=== PATIENT | female | born 1940 | race Caucasian/White ===

== ENCOUNTER 2018-10-20 10:23 | Inpatient (IN) ==
--- NOTE | 2018-10-20 11:24 | Emergency Department Note ---
History of Present Illness General Chief complaint: Hip Pain Stated complaint: fall/ L hip & leg pain Time Seen by Provider: 10/20/18 10:31 Source: patient Mode of arrival: EMS History of Present Illness Maximum Pain Intensity: 5 This 78-year-old white female presents by BLS ambulance, for evaluate of left- sided low back and pelvic pain after falling at home this morning. Patient has a history of neuropathy. She fell asleep in her recliner and woke up around 1 AM. She attempted to walk to the bedroom but her left leg gave out. She fell backwards landing on her buttock and back. She attempted to bear weight on the left leg but states it was too painful and could not. She sat on the floor until 8AM when she called her daughter. She states she did not want to bother anyone in the early hours. No prior history of significant hip or low back pain. She denies any chest pain, shortness of breath, abdominal pain. She denies any neck pain. She believes she did not strike her head. She does not take any blood thinners. Home Medications Home Medications Medication Instructions Recorded Confirmed Type allopurinol [Zyloprim] 100 mg PO BID 10/20/18 10/20/18 History atorvastatin [Lipitor] 40 mg PO QPM 10/20/18 10/20/18 History brimonidine 1 drp OPHTHALMIC (EYE) DAILY 10/20/18 10/20/18 History escitalopram oxalate 10 mg PO QPM 10/20/18 10/20/18 History gabapentin [Neurontin] 100 mg PO TID 10/20/18 10/20/18 History glimepiride 1 mg PO BID 10/20/18 10/20/18 History insulin detemir U-100 [Levemir 30 - 35 units SUBCUT QPM 10/20/18 10/20/18 History U-100 Insulin] levothyroxine 100 mcg PO QPM 10/20/18 10/20/18 History metoprolol succinate 100 mg PO QPM 10/20/18 10/20/18 History prednisone 5 mg PO QPM 10/20/18 10/20/18 History sitagliptin [Januvia] 50 mg PO QPM 10/20/18 10/20/18 History Allergies Allergy/AdvReac Type Severity Reaction Status Date / Time meperidine Allergy Hives Unverified 10/20/18 11:10 Past Med/Surg History Medical History PMR (polymyalgia rheumatica) (Chronic) Hypothyroidism (Chronic) GERD (gastroesophageal reflux disease) (Chronic) Peripheral neuropathy (Chronic) HTN (hypertension) (Chronic) Dyslipidemia (Chronic) Diabetes mellitus, type II (Chronic) Neuropathy Surgical History Hx of tonsillectomy (Resolved) History of cholecystectomy (Resolved) History of appendectomy (Resolved) History of cataract extraction with lens replacement (Resolved) Family History Daughter Diabetes borderline Other No pertinent family history Social History marital status: Current Living Situation: Alone current occupational status: retired Other Information That Helps Us Care for You: No Feels Safe at Home: Yes Smoking Status: Never smoker Do You Dip or Chew Tobacco: No Second Hand Exposure: No Tobacco Cessation Education Requested by Patient: No Hx Alcohol Use: No Hx Substance Use: No Beliefs That Will Affect Care: None Communication Ability: Effective Visual Impairment: No Limitations Hearing Ability: Normal Review of Systems A total of 10 systems reviewed and were otherwise negative Physical Exam Vital Signs Vital Signs - 24 hr 10/20/18 10:39 10/20/18 13:42 10/20/18 15:40 Temperature 36.8 C Temperature Source Oral Sepsis Recent Fever Within 48 Hours No Sepsis Action Taken by Nursing No Action Required Pulse Rate 85 Pulse Rate [Right Finger] 83 88 Pulse Rhythm Regular Pulse Strength Normal Respiratory Rate 20 20 20 Respiratory Effort / Characteristics Non-Labored Respiratory Depth Normal Respiratory Pattern Regular Blood Pressure 169/115 H Blood Pressure [Right Arm] 159/87 H 145/87 H Blood Pressure Mean 133 Blood Pressure Mean [Right Arm] 111 106 Blood Pressure Position Lying Pulse Oximetry 98 94 94 Oxygen Delivery Method Room Air Room Air Room Air 10/20/18 16:45 Temperature Temperature Source Sepsis Recent Fever Within 48 Hours Sepsis Action Taken by Nursing Pulse Rate 85 Pulse Rate [Right Finger] Pulse Rhythm Pulse Strength Respiratory Rate 18 Respiratory Effort / Characteristics Respiratory Depth Respiratory Pattern Blood Pressure 139/88 Blood Pressure [Right Arm] Blood Pressure Mean Blood Pressure Mean [Right Arm] Blood Pressure Position Pulse Oximetry 92 Oxygen Delivery Method Room Air General: Well-developed, well-nourished, elderly white female, in obvious discomfort. No acute distress. Laying on a bed. Alert and oriented. Skin: Warm and dry with good turgor. No rashes or lesions. No erythema. No ecchymosis present on her back or buttocks. Mild ecchymosis present on the lateral aspect of her left ankle. The patient is not diaphoretic. No abrasions. HEENT: Normocephalic atraumatic. Eyes PERRLA, EOMI. No conjunctiva or scleral injection. Ears TMs intact bilaterally with good light reflexes. No erythema or bulging. No hemotympanum. Canals are patent. Nares patent bilaterally without turbinate enlargement. No significant drainage. No epistaxis. Oropharynx without erythema or exudate. Uvula midline, oral mucosa moist. No lesions present. Heart: Heart RRR. No MGR. Peripheral pulses are 2+. Lungs: Lungs are clear to auscultation. No crackles rhonchi or wheezing. Good air movement. The patient is able to take a deep breath. Abdomen: Abdomen was inspected, auscultated, and palpated. Bowel sounds present x 4. Soft, nontender to palpation. No hepato-splenomegaly. No masses noted. No rebound, negative Cui sign. No pain over McBurney's point. No CVA tenderness. Musculoskeletal: No pain with palpation over the cervical spine or thoracic spine. Mild discomfort with palpation over the lumbar spine. Severe pain with palpation over the left SI joint and gluteus. No pain with palpation over her anterior flexion crease or greater trochanter. Intact motor function of the upper extremities. Intact motor function to the lower extremities as well. She denies any groin pain with logrolling of the hip or passive hip flexion on either side. Left hip flexion does cause gluteal and SI joint discomfort. She has no leg length discrepancy and there is no rotational deformity. Neurologic: Gross sensation is intact across the upper and lower extremities by soft touch. Peripheral pulses are 2+. Course Administered Medications Sodium Chloride (Nss 1000ml) 1,000 mls @ 200 mls/hr IV .Q5H ROBERT Stop: 11/19/18 13:44 Last Infusion: 10/20/18 17:47 Dose: 0 mls/hr Admin: 10/20/18 14:42 Dose: 200 mls/hr Oxycodone HCl (Roxicodone Immediate Rel) 5 mg PO Q4 PRN PRN Reason: Pain Stop: 11/03/18 16:59 Last Admin: 10/20/18 17:53 Dose: 5 mg Discontinued Medications Acetaminophen (Tylenol) 1,000 mg PO NOW STA Stop: 10/20/18 12:38 Last Admin: 10/20/18 13:03 Dose: 1,000 mg Ketorolac Tromethamine (Toradol) 15 mg IV ONE ONE Stop: 10/20/18 14:06 Last Admin: 10/20/18 14:42 Dose: 15 mg Medical Decision Making Differential Diagnosis Hip fracture, fall, pubic rami fracture, iliac crest fracture, spinal fracture, rhabdomyolysis. Medical Records Attestation: I reviewed the patient's medical records. Home Medications Current Medication List: was personally reviewed by me Laboratory Data Attestation: I reviewed the patient's lab results. CBC, PRP, and total CK were obtained. WBCs are mildly elevated at 16.7. BUN and creatinine are mildly elevated at 25 and 1.42. Total CK is normal. Result diagrams: 10/20/18 13:10 10/20/18 13:10 Lab Results 10/20/18 10/20/18 10/20/18 Range/Units 13:10 13:10 13:10 WBC 16.74 H (4.8-10.8) K/uL RBC 3.89 L (4.2-5.4) M/uL Hgb 13.1 (12.0-16.0) g/dL Hct 38.7 (37-47) % MCV 99.5 (80-100) fL MCH 33.7 (25-34) pg MCHC 33.9 (32-36) g/dL RDW Std Deviation 49.9 H (36.4-46.3) fL RDW Coeff of Mansi 13.9 (11.5-14.5) % Plt Count 226 (130-400) K/uL MPV 9.6 (7.4-10.4) fL Immature Gran % (Auto) 0.5 % Neut % (Auto) 79.3 % Lymph % (Auto) 12.4 % Daniels % (Auto) 7.1 % Eos % (Auto) 0.5 % Baso % (Auto) 0.2 % Immature Gran # (Auto) 0.08 H (0.00-0.02) K/uL Neut # (Auto) 13.27 H (1.4-6.5) K/uL Lymph # (Auto) 2.08 (1.2-3.4) K/uL Daniels # (Auto) 1.19 H (0.11-0.59) K/uL Eos # (Auto) 0.08 (0-0.5) K/uL Baso # (Auto) 0.04 (0-0.2) K/uL Sodium 138 (136-145) mmol/L Potassium 3.7 (3.5-5.1) mmol/L Chloride 101 (98-107) mmol/L Carbon Dioxide 28 (21-32) mmol/L Anion Gap 9.0 (3-11) BUN 25 H (7-18) mg/dl Creatinine 1.42 H (0.6-1.2) mg/dl Est Cr Clr Drug Dosing 32.7 ml/min Est GFR ( Amer) 40.3 Est GFR (Non-Af Amer) 34.8 BUN/Creatinine Ratio 17.3 (10-20) Glucose 229 H (70-99) mg/dl Calcium 9.2 (8.5-10.1) mg/dl Total Creatine Kinase 163 (26-192) U/L Imaging Data Attestation: I personally reviewed and interpreted this imaging study as follows : Radiologist's Impression: Radiographic imaging of her pelvis and sacrum were obtained today. They were read by radiology and reviewed by me. No evidence for fracture. CT scan imaging of the head, lumbar spine, and pelvis were also obtained. These were reviewed by me and read by radiology. No intracranial abnormality. Acute L4 compression fracture. No acute abnormality is noted on CT scan imaging of the pelvis. Degenerative changes are noted in the spine and pelvis. Blood Pressure Blood Pressure Findings: Normal blood pressure MDM Narrative Patient was evaluated in A3. IV was established. Labs were obtained. Radiographic imaging of the pelvis, head, and lumbar spine were also obtained. Patient had significant discomfort in the left SI joint and left buttock. Pain was reasonable when she was lying down but had significant difficulty sitting up. She was unable to ambulate. Because of this, placement at a rehab facility was discussed. No beds are available today. I do think she would benefit from physical therapy and occupational therapy. Her daughters are in agreement. She does live by herself and self-care would be very difficult. I also am concerned about pain control given her acute L4 compression fracture. Patient is agreeable to admission. [facility] hospitalist service was contacted and did come to the ED to evaluate the patient. Please see that dictation for final management. She remained stable while in the ED. She did receive Toradol 15 mg IV and Tylenol thousand milligrams p.o. while in the ED. Patient was seen in conjunction with Dr. Whalen, who also evaluated the patient and concurred with today's diagnosis and treatment plan. Impression & Plan Fall at home, Compression fracture of lumbar vertebra, Unable to ambulate Admission by hospitalist service with eventual placement at rehab hospital Discharge Plan Visit Data *Final* Discharge Date/Time: 10/20/18 16:45 Chief Complaint: Hip Pain Stated Complaint: fall/ L hip & leg pain ED Provider: Reyes Whalen ED Midlevel Provider: Hua Moralez Discharge Problem: Fall at home, Compression fracture of lumbar vertebra, Unable to ambulate Patient Disposition: Admitted As Inpatient Discharge Instructions Interventions: ED Discharge Assessment Last Done: 10/20/18 16:45
--- NOTE | 2018-10-20 11:41 | XRay Report ---
SINGLE VIEW PELVIS; 3 VIEWS SACRUM AND COCCYX CLINICAL HISTORY: Fall with pelvic and sacral pain. FINDINGS: An AP view of the pelvis with 3 views of the sacrum and coccyx are obtained. No prior studi es are available for comparison at the time of dictation. The skeletal structures are osteopenic. The re is no radiographic evidence of acute fracture involving the hips or bony pelvis. There is no radio graphic evidence of sacrococcygeal fracture. Moderate arthritic change and joint space narrowing is s een in the hips. Sclerotic degenerative change is noted in the sacroiliac joints. Small enthesophytes arise from the anterior superior iliac spine. Lumbosacral spondylosis is partially imaged. The overl rogelio soft tissues are normal in appearance. Advanced atherosclerotic calcification is noted in the fe moral arteries. No bowel obstruction is seen. IMPRESSION: 1. Osteopenia with no radiographic evidence of acute fracture involving the hips or bony pelvis. 2. There is no radiographic evidence of sacrococcygeal fracture. Electronically signed by: Missael Lara M.D. 10/20/2018 11:40 AM
--- NOTE | 2018-10-20 12:20 | CT Scan Report ---
CT SCAN OF THE BRAIN WITHOUT IV CONTRAST CLINICAL HISTORY: Fall. COMPARISON STUDY: No priors. TECHNIQUE: Unenhanced axial CT scan of the brain is performed from the vertex to the skull base. A do se lowering technique was utilized adhering to the principles of ALARA. CT DOSE: 614.27 mGy.cm FINDINGS: Brain parenchyma: There are age-related involutional changes noting mild subcortical and periventric ular microangiopathic change. There is no hemorrhage, mass effect, or evidence of acute territorial i schemia by CT criteria. Street-white matter differentiation is preserved. No extra-axial fluid collecti on is seen. Ventricles, sulci, cisterns: Prominent secondary to involutional change. Intracranial vasculature: There is atherosclerotic calcification of the cavernous carotid and vertebr al arteries. Calvarium: The skeletal structures are osteopenic. No depressed calvarial fracture is identified. Sinuses and mastoids: There is mucosal thickening within the posterior right ethmoid sinuses. The rem aining paranasal sinuses are clear. The mastoid air cells are well pneumatized. Orbits: The bony orbits are grossly intact. There are bilateral ocular lens implants. IMPRESSION: There is no hemorrhage, mass effect, or evidence of acute territorial ischemia by CT noah nix. Electronically signed by: Missael Lara M.D. 10/20/2018 12:19 PM
[2018-10-20] MEDS ORDERED: ACETAMINOPHEN 500 MG TAB PO STA (12:37)
[2018-10-20 13:19] LABS: Basophils # (auto) 0.04 K/uL (0-0.2); Basophils % (auto) 0.2 %; Eosinophils # (auto) 0.08 K/uL (0-0.5); Eosinophils % (auto) 0.5 %; Hematocrit (blood only) 38.7 % (37-47); Hemoglobin 13.1 g/dL (12.0-16.0); Immature Granulocytes # (auto) 0.08 K/uL (0.00-0.02); Immature Granulocytes % (auto) 0.5 %; Lymphocytes # (auto) 2.08 K/uL (1.2-3.4); Lymphocytes % (auto) 12.4 %; Mean Corpuscular Hgb Conc 33.9 g/dL (32-36); Mean Corpuscular Volume 99.5 fL (80-100); Mean Platelet Volume 9.6 fL (7.4-10.4); Monocytes # (auto) 1.19 K/uL (0.11-0.59); Monocytes % (auto) 7.1 %; Neutrophils # (auto) 13.27 K/uL (1.4-6.5); Neutrophils % (auto) 79.3 %; Platelet Count 226 K/uL (130-400); RDW Coefficient of Variation 13.9 % (11.5-14.5); RDW Standard Deviation 49.9 fL (36.4-46.3); Red Blood Count 3.89 M/uL (4.2-5.4); White Blood Count 16.74 K/uL (4.8-10.8)
--- NOTE | 2018-10-20 13:39 | CT Scan Report ---
CT SCAN OF THE LUMBAR SPINE WITHOUT IV CONTRAST CLINICAL HISTORY: Fall. Low back pain. COMPARISON STUDY: No priors. TECHNIQUE: CT scan of the lumbar spine is performed from the lower thoracic spine to the sacrum. Imag es are reviewed in the axial, sagittal, and coronal planes. IV contrast was not administered for this examination. A dose lowering technique was utilized adhering to the principles of ALARA. FINDINGS: The skeletal structures are osteopenic. There is a moderate acute compression fracture of L 4. No significantly retropulsed fragments are identified. A mild superior endplate compression deform ity of L3 is age indeterminant. Vertebral body height is otherwise maintained throughout the lumbar s pine. There is minimal retrolisthesis at L2-L3 and minimal anterolisthesis at L4-L5. Anterior osteoph ytes are seen throughout. The transverse and spinous processes are intact. There is no evidence of sp ondylolysis. No lytic or blastic lesion is seen. Mild facet arthropathy is seen in the lower lumbar r egion. There is advanced disc space narrowing with a large posterior disc osteophyte complex at L5-S1 . Small posterior disc osteophyte complexes are seen at the remaining lumbar levels. Moderate disc sp consuelo narrowing is seen at L2-L3. There is no evidence of large disc herniation by CT. The visualized s acrum and bony pelvis appear intact. Sclerotic change is noted in the sacroiliac joints. There is adv anced atherosclerotic calcification of the abdominal aorta. The paraspinous soft tissues are normal i n appearance noting fatty atrophy of the paraspinous musculature. The psoas musculature is normal in appearance. Nonobstructing left renal calculi measure up to 6 mm. IMPRESSION: 1. There is a moderate acute compression fracture of L4. No significantly retropulsed fragments are i dentified. 2. There is a mild and age indeterminant superior endplate compression deformity of L3. 3. No additional acute fracture is identified involving the lumbar spine. 4. Nonobstructing left renal calculi. Electronically signed by: Missael Lara M.D. 10/20/2018 1:52 PM
[2018-10-20 13:41] LABS: BUN Creatinine Ratio 17.3 (10-20); Calcium 9.2 mg/dl (8.5-10.1); Creatinine Clr Calc Pharmacy 32.7 ml/min; Est GFR (African American) 40.3; Est GFR (Non-African American) 34.8; Potassium 3.7 mmol/L (3.5-5.1)
--- NOTE | 2018-10-20 13:48 | CT Scan Report ---
CT SCAN OF THE PELVIS WITHOUT IV CONTRAST CLINICAL HISTORY: Fall. Pelvic pain. COMPARISON STUDY: Sacral and pelvic radiographs dated 10/20/2018. TECHNIQUE: CT scan of the bony pelvis is performed from the pelvic inlet to the proximal femora. Imag es are reviewed in the axial, sagittal, and coronal planes. IV contrast was not administered for this examination as per the referring clinician. A dose lowering technique was utilized adhering to the p rinciples of ALARA. CT DOSE: 1409.72 mGy.cm FINDINGS: The skeletal structures are osteopenic. There is a moderate acute compression fracture of L 4. No significantly retropulsed fragments are identified. No fracture is identified involving the hip s or bony pelvis. Arthritic change is noted in the hips. There is no evidence of joint effusion. Dege nerative sclerosis is seen in the sacroiliac joints. No lytic or blastic lesion is identified. There is atherosclerotic calcification of the distal abdominal aorta and iliac arteries. The bladder, uteru s, and adnexa are normal as visualized. The visualized loops of small bowel and colon are normal in c aliber. There are scattered colonic diverticula noted in the sigmoid. No free fluid is identified in the pelvis. There is generalized symmetric atrophy of the regional musculature. No intramuscular kamala moi is seen. The overlying soft tissues are normal in appearance. IMPRESSION: 1. There is no evidence of fracture involving the hips or bony pelvis. 2. There is a moderate acute compression fracture of L4. No significantly retropulsed fragments are i dentified. 3. Osteopenia and degenerative change as above. Electronically signed by: Missael Lara M.D. 10/20/2018 1:46 PM
[2018-10-20] MEDS ORDERED: KETOROLAC TROMETHAMINE 15 MG/ML VIAL IV ONE (14:05)
[2018-10-20] MEDS: SODIUM CHLORIDE 0.9% 1000ML 1,000 ML IV SCH ×2 (14:42→22:45)
--- NOTE | 2018-10-20 15:09 | Emergency Department Note ---
ED Visit Note I have personally evaluated this patient examined her and reviewed the pertinent labs and data. I have discussed the case with Hua Moralez, the physician bacteriology research assistant and agree with the plan. Please refer to the PA note. This patient comes in after suffering a mechanical fall. On my exam, she has a lot of pain in her left buttocks and into the back. We did a CAT scan of her head is negative. X-rays of the pelvis were unremarkable she seems most tender along the left posterior pelvis. In light of her ongoing symptoms, we did order CAT scans and blood work. CAT scans do show a lower lumbar fracture. I do think she needs to be admitted for pain management and further evaluation. She has received IV Toradol in the ER as well. .
--- NOTE | 2018-10-20 15:51 | History & Physical Report ---
Date of Service October 20, 2018 Assessment & Plan (1) Lumbar compression fracture: (2) Fall: (3) Ambulatory dysfunction: Pt with reported fall when getting out of chair in middle of the night. Unable to get off floor for 6 hours. Denies dizziness, LOC, CP, SOB. C/O low back pain and hip pain In ER patient afebrile, P: 85, R: 20, BP 169/118 down to 159/87, 98% on room air. WBC: 16. Patient on chronic prednisone. BUN: 25, Cr: 1.4 (baseline 1.4- 1.6). Was given Tylenol, Toradol, NSS. Reported that patient was unable to ambulate in ER. An attempt was made to get patient to [facility] rehab however no beds were available today, reported possible opening tomorrow. -Lumbar CT: There is a moderate acute compression fracture of L4. No significantly retropulsed fragments are identified. There is a mild and age indeterminant superior endplate compression deformity of L3. No additional acute fracture is identified involving the lumbar spine. -Pelvis CT: There is no evidence of fracture involving the hips or bony pelvis. -CT Head: no acute changes -CPK: 163 -Pending UA -gentle IVF -oxycodone prn pain -CBC, BMP, CPK in a.m. -PT/OT eval -spine ortho consult -appreciate recommendations about brace (4) HTN (hypertension): Initially elevated in ER at 169/115 down to 159/87. Probable secondary to pain. -continue metoprolol (5) Diabetes mellitus, type II: HbA1c: 7.9 on 06/2018 -Continue home Levemir -NovoLog sliding scale per protocol -Hold Januvia (6) PMR (polymyalgia rheumatica): -Continue chronic prednisone (7) Hypothyroidism: TSH: 0.57 on 06/2018 -Continue levothyroxine (8) CKD (chronic kidney disease), stage III: Cr: 1.4. Baseline: 1.4-1.6 -monitor renal functions (9) Dyslipidemia: -Continue statin (10) Depression: -Continue Lexapro (11) Peripheral neuropathy: -Patient reports does not take gabapentin as did not feel it was helpful DVT Prophylaxis -Heparin SQ Full Code as per discussion with pt Follows with Judith eNlson PA-C for routine care Pt was seen with Dr Mendez. See addendum History of Present Illness Chief Complaint: Fall, back and hip pain Primary Care Provider: Judith Nleson Pt is 78 y/o F with PMH insulin dependent DM II, peripheral neuropathy, HTN, dyslipidemia, depression, GERD, hypothyroidism, PMR presented to ER with c/o fall. Pt reports chronic numbness bilateral feet. States fell asleep in chair last night and woke up, stood up to walk and thinks leg buckled and fell to floor and was unable to get up for approx 6 hours. C/O low back pain and right hip pain. Reports intense pain with attempt to ambulate and unable to ambulate. Denies any increased BLE paresthesias. Doesn't think hit her head. Remembers incident and denies LOC. Denies fever/chills, diaphoresis, N/V/D/C, PARHAM, dizziness, syncope, vision changes, neck pain, CP, SOB, orthopnea, palpitations , cough, sore throat, choking, otalgia, rhinorrhea, abdominal pain, extremity edema, rashes, urinary symptoms, loss control bowel/bladder, saddle paresthesias. Allergies Allergy/AdvReac Type Severity Reaction Status Date / Time meperidine Allergy Hives Unverified 10/20/18 11:10 Home Medications Home Medications Medication Instructions Recorded Confirmed Type allopurinol [Zyloprim] 100 mg PO BID 10/20/18 10/20/18 History atorvastatin [Lipitor] 40 mg PO QPM 10/20/18 10/20/18 History brimonidine 1 drp OPHTHALMIC (EYE) DAILY 10/20/18 10/20/18 History escitalopram oxalate 10 mg PO QPM 10/20/18 10/20/18 History gabapentin [Neurontin] 100 mg PO TID 10/20/18 10/20/18 History glimepiride 1 mg PO BID 10/20/18 10/20/18 History insulin detemir U-100 [Levemir 30 - 35 units SUBCUT QPM 10/20/18 10/20/18 History U-100 Insulin] levothyroxine 100 mcg PO QPM 10/20/18 10/20/18 History metoprolol succinate 100 mg PO QPM 10/20/18 10/20/18 History prednisone 5 mg PO QPM 10/20/18 10/20/18 History sitagliptin [Januvia] 50 mg PO QPM 10/20/18 10/20/18 History Past Med/Surg History Medical History Depression (Chronic) CKD (chronic kidney disease), stage III (Chronic) PMR (polymyalgia rheumatica) (Chronic) Hypothyroidism (Chronic) GERD (gastroesophageal reflux disease) (Chronic) Peripheral neuropathy (Chronic) HTN (hypertension) (Chronic) Dyslipidemia (Chronic) Diabetes mellitus, type II (Chronic) Neuropathy Surgical History Hx of tonsillectomy (Resolved) History of cholecystectomy (Resolved) History of appendectomy (Resolved) History of cataract extraction with lens replacement (Resolved) Family History Daughter Diabetes borderline Other No pertinent family history Social History marital status: Current Living Situation: Alone current occupational status: retired Other Information That Helps Us Care for You: No Feels Safe at Home: Yes Smoking Status: Never smoker Do You Dip or Chew Tobacco: No Second Hand Exposure: No Tobacco Cessation Education Requested by Patient: No Hx Alcohol Use: No Hx Substance Use: No Beliefs That Will Affect Care: None Communication Ability: Effective Visual Impairment: No Limitations Hearing Ability: Normal Review of Systems All systems reviewed & are unremarkable except as noted in HPI & below Physical Exam 2 Vital Signs (Past 24 Hours): Last Vital Signs Temp 36.8 C 10/20/18 10:39 Pulse 83 10/20/18 13:42 Resp 20 10/20/18 13:42 BP 159/87 H 10/20/18 13:42 Pulse Ox 94 10/20/18 13:42 Physical Exam: General: no acute distress, WDWN Head: normocephalic, atraumatic Eyes: PERRL, EOM's intact, conjunctiva non-injected, anicteric ENT: normal inspection external ears, nose, mucous membranes moist Neck: supple, trachea midline, non-tender Lungs: clear, no respiratory distress CV: RRR, no murmur, no pretibial edema Abd: normal BS, soft, non-tender Back: limited ROM, +tenderness to palpation lower back Ext: no cyanosis, no calf tenderness, +tenderness to right hip/pelvis, legs non- tender to palpation, ROM R and L leg with minimal hip flexion causes back pain, flexion and extension knees and ankles intact bilaterally. sensation to light touch intact, brisk capillary refill, distal pulses palpable. Neuro: A&O x 3, no focal deficits noted, normal affect Skin: warm, dry Results & Data Laboratory Results Short CBC 10/20/18 Range/Units 13:10 WBC 16.74 H (4.8-10.8) K/uL Hgb 13.1 (12.0-16.0) g/dL Hct 38.7 (37-47) % Plt Count 226 (130-400) K/uL BMP 10/20/18 13:10 Sodium 138 Potassium 3.7 Chloride 101 Carbon Dioxide 28 BUN 25 H Creatinine 1.42 H Glucose 229 H Calcium 9.[address] HEAD: IMPRESSION: There is no hemorrhage, mass effect, or evidence of acute territorial ischemia by CT criteria. PELVIS XRAY: IMPRESSION: 1. Osteopenia with no radiographic evidence of acute fracture involving the hips or bony pelvis. 2. There is no radiographic evidence of sacrococcygeal fracture. SACRUM/COCCYX XRAY: IMPRESSION: 1. Osteopenia with no radiographic evidence of acute fracture involving the hips or bony pelvis. 2. There is no radiographic evidence of sacrococcygeal fracture. LUMBAR SPINE CT: IMPRESSION: 1. There is a moderate acute compression fracture of L4. No significantly retropulsed fragments are identified. 2. There is a mild and age indeterminant superior endplate compression deformity of L3. 3. No additional acute fracture is identified involving the lumbar spine. 4. Nonobstructing left renal calculi. PELVIS CT: IMPRESSION: 1. There is no evidence of fracture involving the hips or bony pelvis. 2. There is a moderate acute compression fracture of L4. No significantly retropulsed fragments are identified. 3. Osteopenia and degenerative change as above. Supervising Physician Co-Signing Physician Notes I saw this patient with the physician marketing assistant, I participated in the history, physical, review of systems, and physical exam. I reviewed the medications with the patient and the physician marketing assistant and helped reconcile the medications. I helped take a detailed family and social history as well. I formulated the assessment and plan personally with the physician marketing assistant and went over it with the patient.
[2018-10-20] MEDS ORDERED: SODIUM CHLORIDE 0.9% 1000ML 1,000 ML IV SCH (17:00)
[2018-10-20] MEDS ORDERED: ACETAMINOPHEN 325 MG TAB PO PRN (17:00)
[2018-10-20] MEDS ORDERED: ONDANSETRON INJ 2 MG/ML 2 ML VIAL IV PRN (17:00)
[2018-10-20] MEDS: OXYCODONE HCL IR 5 MG TAB (IMMEDIATE RELEASE) PO PRN ×2 (17:53→22:36)
[2018-10-20] MEDS ORDERED: GLUCOSE 10 TABS/TUBE PO PRN (19:19)
[2018-10-20] MEDS ORDERED: GLUCAGON FOR INJ 1 MG VIAL SQ PRN (19:19)
[2018-10-20] MEDS ORDERED: CARBOHYDRATES FOR HYPOGLYCEMIA PO PRN (19:19)
[2018-10-20] MEDS ORDERED: GLUCOSE 40% GEL 15 GM TUBE PO PRN (19:19)
[2018-10-20] MEDS ORDERED: DEXTROSE 50% 50 ML SYRINGE IV PRN (19:19)
[2018-10-20] MEDS: HEPARIN SOD 5,000 UNIT/0.5 ML VIAL SQ SCH (21:44)
[2018-10-20] MEDS: ATORVASTATIN 40 MG TAB PO SCH (21:44)
[2018-10-20] MEDS: METOPROLOL SUCC 50MG EXT REL TAB PO SCH (21:44)
[2018-10-20] MEDS: ALLOPURINOL 100 MG TAB PO SCH (21:45)
[2018-10-20] MEDS: ESCITALOPRAM OXALATE 10 MG TAB PO SCH (21:45)
[2018-10-20] MEDS: predniSONE 5 MG TAB PO SCH (21:45)
[2018-10-20] MEDS: LEVOTHYROXINE SODIUM 100 MCG TABLET PO SCH (21:45)
[2018-10-20] MEDS: INSULIN DETEMIR FLEXPEN/FLEX TOUCH 100 UNITS/ML 3ML SC SCH (21:46)
[2018-10-20] MEDS: INSULIN ASPART 100 UNITS/ML 3 ML PEN SC SCH (21:51)
[2018-10-20] MEDS: LIDOCAINE 5% 1 PATCH TD SCH (23:24)
[2018-10-20 23:51] LABS: Appearance Urine Clear (Clear); Bacteria Urine Automated Negative (Negative); Bilirubin Urine Negative (Negative); Color Urine Yellow; Epithelial Cell Urine Auto 0-5 /lpf (0-5); Glucose Urine UA Trace (Negative); Ketones Urine Negative (Negative); Leukocyte Esterase Urine Negative (Negative); Nitrite Urine Negative (Negative); Protein Urine 1+ (Negative); Specific Gravity Urine 1.015 (1.000-1.030); Urobilinogen Urine Negative (Negative); WBC Urine Automated 0 /hpf (0-5)
[2018-10-21] MEDS: HEPARIN SOD 5,000 UNIT/0.5 ML VIAL SQ SCH ×3 (06:07→22:08)
[2018-10-21 06:25] LABS: Hematocrit (blood only) 34.3 % (37-47); Hemoglobin 11.3 g/dL (12.0-16.0); Mean Corpuscular Hgb Conc 32.9 g/dL (32-36); Mean Corpuscular Volume 99.4 fL (80-100); Mean Platelet Volume 9.8 fL (7.4-10.4); Platelet Count 191 K/uL (130-400); RDW Coefficient of Variation 14.1 % (11.5-14.5); RDW Standard Deviation 50.4 fL (36.4-46.3); Red Blood Count 3.45 M/uL (4.2-5.4); White Blood Count 10.47 K/uL (4.8-10.8)
[2018-10-21 07:02] LABS: BUN Creatinine Ratio 16.8 (10-20); Calcium 8.5 mg/dl (8.5-10.1); Creatinine Clr Calc Pharmacy 32.2 ml/min; Est GFR (African American) 39.7; Est GFR (Non-African American) 34.2; Potassium 3.8 mmol/L (3.5-5.1)
[2018-10-21] MEDS: OXYCODONE HCL IR 5 MG TAB (IMMEDIATE RELEASE) PO PRN ×3 (07:53→18:23)
[2018-10-21] MEDS: BRIMONIDINE TARTRATE-P 0.15% 5 ML BTL OP SCH (07:53)
[2018-10-21] MEDS: ALLOPURINOL 100 MG TAB PO SCH ×2 (07:54→22:05)
[2018-10-21] MEDS: INSULIN ASPART 100 UNITS/ML 3 ML PEN SC SCH ×4 (08:04→22:03)
--- NOTE | 2018-10-21 11:42 | History & Physical Report ---
Date of Service October 21, 2018 Assessment & Plan (1) Lumbar compression fracture: (2) Fall: (3) Ambulatory dysfunction: Pt with reported fall when getting out of chair in middle of the night. Unable to get off floor for 6 hours. Denies dizziness, LOC, CP, SOB. C/O low back pain and hip pain In ER patient afebrile, P: 85, R: 20, BP 169/118 down to 159/87, 98% on room air. WBC: 16. Patient on chronic prednisone. BUN: 25, Cr: 1.4 (baseline 1.4- 1.6). Was given Tylenol, Toradol, NSS. Reported that patient was unable to ambulate in ER. An attempt was made to get patient to [facility] rehab however no beds were available today, reported possible opening tomorrow. -Lumbar CT: There is a moderate acute compression fracture of L4. No significantly retropulsed fragments are identified. There is a mild and age indeterminant superior endplate compression deformity of L3. No additional acute fracture is identified involving the lumbar spine. -Pelvis CT: There is no evidence of fracture involving the hips or bony pelvis. -CT Head: no acute changes -CPK: 163 -Pending UA -gentle IVF -oxycodone prn pain -CBC, BMP, CPK in a.m. -PT/OT eval -spine ortho consult -appreciate recommendations about brace (4) HTN (hypertension): Initially elevated in ER at 169/115 down to 159/87. Probable secondary to pain. -continue metoprolol (5) Diabetes mellitus, type II: HbA1c: 7.9 on 06/2018 -Continue home Levemir -NovoLog sliding scale per protocol -Hold Januvia (6) PMR (polymyalgia rheumatica): -Continue chronic prednisone (7) Hypothyroidism: TSH: 0.57 on 06/2018 -Continue levothyroxine (8) CKD (chronic kidney disease), stage III: Cr: 1.4. Baseline: 1.4-1.6 -monitor renal functions (9) Dyslipidemia: -Continue statin (10) Depression: -Continue Lexapro (11) Peripheral neuropathy: -Patient reports does not take gabapentin as did not feel it was helpful DVT Prophylaxis -Heparin SQ Full Code as per discussion with pt Follows with Judith Nelson PA-C for routine care Pt was seen with Dr Mendez. See addendum History of Present Illness Primary Care Provider: Judith Nelson Allergies Allergy/AdvReac Type Severity Reaction Status Date / Time meperidine Allergy Hives Unverified 10/20/18 11:10 Home Medications Home Medications Medication Instructions Recorded Confirmed Type allopurinol [Zyloprim] 100 mg PO BID 10/20/18 10/20/18 History atorvastatin [Lipitor] 40 mg PO QPM 10/20/18 10/20/18 History brimonidine 1 drp OPHTHALMIC (EYE) DAILY 10/20/18 10/20/18 History escitalopram oxalate 10 mg PO QPM 10/20/18 10/20/18 History gabapentin [Neurontin] 100 mg PO TID 10/20/18 10/20/18 History glimepiride 1 mg PO BID 10/20/18 10/20/18 History insulin detemir U-100 [Levemir 30 - 35 units SUBCUT QPM 10/20/18 10/20/18 History U-100 Insulin] levothyroxine 100 mcg PO QPM 10/20/18 10/20/18 History metoprolol succinate 100 mg PO QPM 10/20/18 10/20/18 History prednisone 5 mg PO QPM 10/20/18 10/20/18 History sitagliptin [Januvia] 50 mg PO QPM 10/20/18 10/20/18 History Past Med/Surg History Medical History Depression (Chronic) CKD (chronic kidney disease), stage III (Chronic) PMR (polymyalgia rheumatica) (Chronic) Hypothyroidism (Chronic) GERD (gastroesophageal reflux disease) (Chronic) Peripheral neuropathy (Chronic) HTN (hypertension) (Chronic) Dyslipidemia (Chronic) Diabetes mellitus, type II (Chronic) Neuropathy Surgical History Hx of tonsillectomy (Resolved) History of cholecystectomy (Resolved) History of appendectomy (Resolved) History of cataract extraction with lens replacement (Resolved) Family History Daughter Diabetes borderline Other No pertinent family history Social History marital status: Current Living Situation: Alone current occupational status: retired Other Information That Helps Us Care for You: No Feels Safe at Home: Yes Smoking Status: Never smoker Do You Dip or Chew Tobacco: No Second Hand Exposure: No Tobacco Cessation Education Requested by Patient: No Hx Alcohol Use: No Hx Substance Use: No Beliefs That Will Affect Care: None Communication Ability: Effective Visual Impairment: No Limitations Hearing Ability: Normal Physical Exam 2 Vital Signs (Past 24 Hours): Last Vital Signs Temp 36.8 C 10/21/18 07:00 Pulse 69 10/21/18 07:00 Resp 18 10/21/18 07:00 BP 184/83 H 10/21/18 07:00 Pulse Ox 92 10/21/18 09:38
--- NOTE | 2018-10-21 12:07 | Hospitalist Progress Note ---
Date of Service October 21, 2018 Assessment & Plan (1) Lumbar compression fracture: (2) Fall: (3) Ambulatory dysfunction: -Hospital day #2 -Patient presented with fall when getting out of chair in middle of the night. Unable to get off floor for 6 hours. Denied dizziness, LOC, CP, SOB. C/O low back pain and hip pain -Lumbar CT: There is a moderate acute compression fracture of L4. No significantly retropulsed fragments are identified. There is a mild and age indeterminant superior endplate compression deformity of L3. No additional acute fracture is identified involving the lumbar spine. -Pelvis CT: There is no evidence of fracture involving the hips or bony pelvis. -CT Head: no acute changes -spine ortho consult -appreciate recommendations about brace -Patient continues to have low back pain with minimal movement -will change Tylenol to scheduled every 6 hours, continue as needed oxycodone -Awaiting bed availability at [facility] (4) HTN (hypertension): -BP has remained elevated since admission, likely secondary to pain however will start low-dose amlodipine 2.5 mg daily -continue metoprolol (5) Diabetes mellitus, type II: -HbA1c: 7.9 on 06/2018 -Continue home Levemir -NovoLog sliding scale per protocol -Hold Januvia (6) PMR (polymyalgia rheumatica): -Continue chronic prednisone (7) Hypothyroidism: -TSH: 0.57 on 06/2018 -Continue levothyroxine (8) CKD (chronic kidney disease), stage III: -Baseline creatinine 1.4-1.6 -Creatinine 1.4 1/ -monitor renal functions (9) Dyslipidemia: -Continue statin (10) Depression: -Continue Lexapro (11) Peripheral neuropathy: -Patient reports does not take gabapentin as did not feel it was helpful (12) DVT prophylaxis: -SQ heparin (13) Discharge planning issues: -Awaiting bed availability at [facility] Supervising Physician Co-Signing Physician Notes Patient is seen and examined at bedside. Patient complains of significant lower back pain especially with movement. Had PT/OT today. Lumbar CT showed acute compression fracture of L4 and subacute compression deformity of L3. She is being treated conservatively with Pain control, PT/OT and Brace. Patient will be transferred to rehab facility as able. On exam patient is no apparent distress while in bed, NC/AT, lungs are CTA, S1, S2, Lower back tenderness, No pedal edema, grossly no focal deficits. I personally reviewed the record. Patient is interviewed and examined at bedside. Patient's care is coordinated with Karen Chavez HUMAN MACHINE INTERFACE ENGINEER. Please refer to the documentation above for details of patient's presentation and for discussion of other issues. Subjective Patient seen and examined. Reports increased back pain after working with therapy. Has chronic neuropathy to the bilateral lower extremities, unchanged baseline. Denies chest pain shortness breath. No abdominal pain or nausea. Physical Exam 2 Vital Signs (Past 24 Hours): Last Vital Signs Temp 36.8 C 10/21/18 07:00 Pulse 69 10/21/18 07:00 Resp 18 10/21/18 07:00 BP 184/83 H 10/21/18 07:00 Pulse Ox 92 10/21/18 09:38 Constitutional: WD/WN, vitals as above Respiratory: normal respiratory effort, lungs clear to auscultation Cardiovascular: Rate/Rhythm: regular rate and regular rhythm Extremities: no edema Gastrointestinal (Abdomen): Percussion/Palpation: abdomen soft; abdomen nontender Musculoskeletal: Low back pain with minimal movement Psychiatric: A+Ox3, euthymic affect Results & Data Laboratory Results Short CBC 10/20/18 10/21/18 Range/Units 13:10 06:09 WBC 16.74 H 10.47 (4.8-10.8) K/uL Hgb 13.1 11.3 L (12.0-16.0) g/dL Hct 38.7 34.3 L (37-47) % Plt Count 226 191 (130-400) K/uL BMP 10/20/18 10/21/18 13:10 06:09 Sodium 138 138 Potassium 3.7 3.8 Chloride 101 104 Carbon Dioxide 28 27 BUN 25 H 24 H Creatinine 1.42 H 1.44 H Glucose 229 H 162 H Calcium 9.2 8.5 Cardiac Enzymes 10/20/18 10/21/18 Range/Units 13:10 06:09 Total Creatine Kinase 163 115 (26-192) U/L Urine 10/20/18 Range/Units 23:23 Urine Color Yellow Urine Appearance Clear (Clear) Urine pH 6.0 (4.5-7.5) Ur Specific [place] 1.015 (1.000-1.030) Urine Protein 1+ H (Negative) Urine Glucose (UA) Trace H (Negative)
[2018-10-21] MEDS ORDERED: AMLODIPINE BESYLATE 5 MG TAB PO ONE (12:15)
[2018-10-21] MEDS: ACETAMINOPHEN 325 MG TAB PO SCH ×2 (12:17→18:22)
[2018-10-21] MEDS: LIDOCAINE 5% 1 PATCH TD SCH (15:07)
--- NOTE | 2018-10-21 15:09 | XRay Report ---
AP PELVIS AND LEFT HIP 4 VIEWS CLINICAL HISTORY: Left hip pain COMPARISON: 10/20/2018 DISCUSSION: No fractures identified. Incidental note is made of vascular calcifications. IMPRESSION: No fractures identified. Electronically signed by: Yaya Bowens M.D. 10/21/2018 3:08 PM
--- NOTE | 2018-10-21 15:10 | Consultation Report ---
DATE OF CONSULTATION: 10/21/2018 CHIEF COMPLAINT: Lumbar spine pain. HISTORY OF PRESENT ILLNESS: The patient, I am meeting for the first time today. She is 78, she is pleasant. She is with her daughter. She had a fall 2 nights ago. Fell, was able to get up her feet, suffered a compression fracture of the spine verified by CT. Fortunately, no significant retropulsion and no neurological deficit. PAST MEDICAL HISTORY: Hypertension, diabetes, hypothyroidism, depression, peripheral neuropathy. MEDICATIONS: Reviewed. PAST SURGICAL HISTORY: Positive for tonsillectomy, cholecystectomy, appendectomy and cataracts. REVIEW OF SYSTEMS: She denies any blurred vision, double vision, tinnitus, vertigo. No chest pain, shortness of breath, nausea, vomiting. OBJECTIVE: GENERAL: She is alert, oriented. Mentation normal. VITAL SIGNS: Blood pressure 170/80, pulse 80, respiration 16. HEART: Rate regular. Normal S1, S2. LUNGS: Clear. ABDOMEN: Soft, nontender. EXTREMITIES: Intact x4. She has good sensation, motor and reflex ability. She has significant pain with percussion, significant pain with log roll. IMAGES: Reviewed. ORTHOPEDIC ASSESSMENT: Lumbar spine compression fracture of the L4 vertebrae and subacute of L3. PLAN: Includes a moderately rigid LSO brace for support. I have ordered that already, that will be fitted up with PT, OT. I estimate she can go to a rehab type facility or nursing type facility in the next 24-72 hours. It is a nonsurgical problem. She will not require surgery by and large, every now and then we get pushed into the kyphoplasty procedure, which is certainly no failure of conservative care, but can be offered. Pain control, I would recommend a mild narcotic, Tylenol seems to be appropriate, Toradol can be helpful in a short run. Neurontin, although makes people sleepy is also beneficial for pain control. I would avoid muscle relaxers at this point in time.
[2018-10-21] MEDS: MoRPHine SULFATE 4 MG/ML 1 ML CARP\\VIAL IV PRN (20:42)
[2018-10-21] MEDS: INSULIN DETEMIR FLEXPEN/FLEX TOUCH 100 UNITS/ML 3ML SC SCH (22:04)
[2018-10-21] MEDS: ATORVASTATIN 40 MG TAB PO SCH (22:05)
[2018-10-21] MEDS: ESCITALOPRAM OXALATE 10 MG TAB PO SCH (22:05)
[2018-10-21] MEDS: predniSONE 5 MG TAB PO SCH (22:06)
[2018-10-21] MEDS: LEVOTHYROXINE SODIUM 100 MCG TABLET PO SCH (22:06)
[2018-10-21] MEDS: METOPROLOL SUCC 50MG EXT REL TAB PO SCH (22:06)
[2018-10-22] MEDS: ACETAMINOPHEN 325 MG TAB PO SCH ×5 (02:36→23:57)
[2018-10-22] MEDS: HEPARIN SOD 5,000 UNIT/0.5 ML VIAL SQ SCH ×3 (05:49→20:58)
[2018-10-22 06:39] LABS: Hematocrit (blood only) 35.1 % (37-47); Hemoglobin 11.4 g/dL (12.0-16.0); Mean Corpuscular Hgb Conc 32.5 g/dL (32-36); Mean Corpuscular Volume 100.6 fL (80-100); Mean Platelet Volume 10.1 fL (7.4-10.4); Platelet Count 211 K/uL (130-400); RDW Coefficient of Variation 14.1 % (11.5-14.5); RDW Standard Deviation 51.5 fL (36.4-46.3); Red Blood Count 3.49 M/uL (4.2-5.4); White Blood Count 10.74 K/uL (4.8-10.8)
[2018-10-22 07:09] LABS: BUN Creatinine Ratio 17.2 (10-20); Calcium 8.6 mg/dl (8.5-10.1); Creatinine Clr Calc Pharmacy 33.8 ml/min; Est GFR (African American) 42.1; Est GFR (Non-African American) 36.3; Potassium 4.2 mmol/L (3.5-5.1)
[2018-10-22] MEDS: OXYCODONE HCL IR 5 MG TAB (IMMEDIATE RELEASE) PO PRN (07:54)
[2018-10-22] MEDS: AMLODIPINE BESYLATE 5 MG TAB PO SCH (07:55)
[2018-10-22] MEDS: ALLOPURINOL 100 MG TAB PO SCH ×2 (07:55→20:57)
[2018-10-22] MEDS: BRIMONIDINE TARTRATE-P 0.15% 5 ML BTL OP SCH (07:55)
[2018-10-22] MEDS: INSULIN ASPART 100 UNITS/ML 3 ML PEN SC SCH ×4 (08:08→20:57)
[2018-10-22] MEDS: MoRPHine SULFATE 4 MG/ML 1 ML CARP\\VIAL IV PRN ×3 (10:25→18:56)
[2018-10-22] MEDS: POLYETHYLENE (MIRALAX) 17 GM PACK PO SCH (10:26)
[2018-10-22] MEDS: DOCUSATE SODIUM 100 MG CAP PO SCH ×2 (10:26→20:56)
[2018-10-22] MEDS ORDERED: CYCLOBENZAPRINE HCL 5 MG TAB PO PRN (12:01)
--- NOTE | 2018-10-22 18:23 | Hospitalist Progress Note ---
Date of Service October 22, 2018 Assessment & Plan (1) Lumbar compression fracture: (2) Fall: (3) Ambulatory dysfunction: -Hospital day #3 -Patient presented with fall when getting out of chair in middle of the night. Unable to get off floor for 6 hours. Denied dizziness, LOC, CP, SOB. C/O low back pain and hip pain -Lumbar CT: There is a moderate acute compression fracture of L4. No significantly retropulsed fragments are identified. There is a mild and age indeterminant superior endplate compression deformity of L3. No additional acute fracture is identified involving the lumbar spine. -Pelvis CT: There is no evidence of fracture involving the hips or bony pelvis. -CT Head: no acute changes -spine ortho consult -appreciate recommendations about brace -Patient continues to have severe left hip and low back pain with minimal movement -Currently receiving scheduled Tylenol and requiring IV morphine for breakthrough pain -Unable to participate in therapy and have brace applied due to pain -Discussed with Dr. Vanegas, will obtain left hip MRI to evaluate for stress fracture (4) HTN (hypertension): -BP remains intermittently elevated, likely secondary to pain -Low-dose amlodipine 2.5 mg started on 10/21 -Continue metoprolol -Continue monitor BP, make adjustments as needed (5) Diabetes mellitus, type II: -HbA1c: 7.9 on 06/2018 -Hypoglycemic this evening (likely due to poor p.o. intake today per nurse), will hold Levemir -NovoLog sliding scale per protocol -Hold Januvia (6) PMR (polymyalgia rheumatica): -Continue chronic prednisone (7) Hypothyroidism: -TSH: 0.57 on 06/2018 -Continue levothyroxine (8) CKD (chronic kidney disease), stage III: -Baseline creatinine 1.4-1.6 -Creatinine 1.3 10/22 -monitor renal functions (9) Dyslipidemia: -Continue statin (10) Depression: -Continue Lexapro (11) Peripheral neuropathy: -Patient reports does not take gabapentin as did not feel it was helpful (12) DVT prophylaxis: -SQ heparin (13) Discharge planning issues: -Awaiting bed availability at [facility] Supervising Physician Co-Signing Physician Notes Patient is seen and examined at bedside. Patient continues to have significant lower back pain and left hip pain especially with movement. MRI not suggestive of acute fracture. She is being treated conservatively with Pain control, PT/OT and Brace. Patient will be transferred to rehab facility as able. On exam patient is no apparent distress while in bed, NC/AT, lungs are CTA, S1, S2, Lower back tenderness, No pedal edema, grossly no focal deficits. I personally reviewed the record. Patient is interviewed and examined at bedside. Patient's care is coordinated with Karen Chavez CARPET INSTALLER. Please refer to the documentation above for details of patient's presentation and for discussion of other issues. Subjective Patient seen and examined. Continues to have persistent, severe left hip pain with minimal movement. Denies chest pain shortness of breath. No abdominal pain or nausea. Physical Exam 2 Vital Signs (Past 24 Hours): Last Vital Signs Temp 36.9 C 10/22/18 15:42 Pulse 68 10/22/18 15:42 Resp 18 10/22/18 15:42 BP 169/89 H 10/22/18 15:42 Pulse Ox 93 10/22/18 15:42 Constitutional: WD/WN, vitals as above Respiratory: normal respiratory effort, lungs clear to auscultation Cardiovascular: Rate/Rhythm: regular rate and regular rhythm Vessels: normal peripheral pulses Extremities: no edema Gastrointestinal (Abdomen): Percussion/Palpation: abdomen soft; abdomen nontender Musculoskeletal: Pain with palpation over the left proximal lateral thigh area Reports left hip and low back pain with minimal movement Psychiatric: Orientation: oriented x 3; + not alert (Drowsy but arouses to verbal stimuli easily) Results & Data Laboratory Results Short CBC 10/22/18 Range/Units 05:55 WBC 10.74 (4.8-10.8) K/uL Hgb 11.4 L (12.0-16.0) g/dL Hct 35.1 L (37-47) % Plt Count 211 (130-400) K/uL BMP 10/22/18 05:55 Sodium 137 Potassium 4.2 Chloride 105 Carbon Dioxide 26 BUN 24 H Creatinine 1.37 H Glucose 133 H Calcium 8.6
--- NOTE | 2018-10-22 18:51 | Magnetic Resonance Report ---
MR hip LT wo con CLINICAL HISTORY: 78 years-old Female with evaluate for stress fracture. Acute pelvis and left hip p ain COMPARISON: CT pelvis October 20, 2017. TECHNIQUE: Multiplanar, multi sequence MRI of the left hip was performed without intravenous contrast . FINDINGS: LABRUM: Fraying and irregularity noted about the bilateral adela suggesting chronic tearing without evidence of acute tear. No evidence of chondrolabral separation or paralabral cyst. BONE MARROW: Bone marrow signal is within normal limits. No evidence of avascular necrosis, fractur e or transient osteoporosis. BURSAE: There is no evidence for iliopsoas or trochanteric bursitis. Mild enthesitis noted about the bilateral gluteal insertion sites about the greater trochanters. HIP JOINT: Moderate joint space narrowing with intermediate grade chondromalacia about the bilateral femoral acetabular joints. Mild to moderate marginal spurring of the femoral acetabular joints. Ther e is no evidence for femoral-acetabular or ischiofemoral impingement syndrome. Trace bilateral hip daniella int effusions. No intraarticular loose body is evident. MUSCLES: There is moderate focal edema noted about the inferomedial aspect of the right gluteus maxi mus musculature, image 26 series 6 and image 29 series 4. Age-related atrophic changes of the pelvic musculature. SCIATIC NERVE: The morphology and signal characteristics of the sciatic nerve appear normal. Large field view brewery technician localizer images demonstrate no gross abnormality. Atrophic appearance of the uterus. Esquivel catheter noted within the urinary bladder lumen. Moderate bone marrow edema noted about the acute L4 compression deformity. IMPRESSION: 1. No acute pelvic fracture, dislocation or focal bone marrow edema. 2. Moderate degenerative changes about the bilateral femoral acetabular joints with trace bilateral j oint effusions. 3. Moderate focal area of intramuscular edema about the inferomedial aspect of the right gluteus maxi mus suggests grade I or II muscle strain. 4. No evidence of bursitis. 5. Moderate bone marrow edema within the acute L4 compression deformity. The above report was generated using voice recognition software. It may contain grammatical, syntax o r spelling errors. Electronically signed by: Carlos Ghosh M.D. 10/22/2018 6:50 PM
[2018-10-22] MEDS ORDERED: methylPREDNISolone 20 MG in SYRINGE 0 ML IV STA (20:43)
[2018-10-22] MEDS: ATORVASTATIN 40 MG TAB PO SCH (20:56)
[2018-10-22] MEDS: ESCITALOPRAM OXALATE 10 MG TAB PO SCH (20:56)
[2018-10-22] MEDS: predniSONE 5 MG TAB PO SCH (20:57)
[2018-10-22] MEDS: LEVOTHYROXINE SODIUM 100 MCG TABLET PO SCH (20:57)
[2018-10-22] MEDS: METOPROLOL SUCC 50MG EXT REL TAB PO SCH (21:02)
[2018-10-23] MEDS: HEPARIN SOD 5,000 UNIT/0.5 ML VIAL SQ SCH ×3 (06:06→21:48)
[2018-10-23] MEDS: ACETAMINOPHEN 325 MG TAB PO SCH ×4 (06:06→23:53)
--- NOTE | 2018-10-23 09:08 | Progress Note ---
DATE: 10/23/2018 CHIEF COMPLAINT: Back and lower extremity difficulty. HISTORY OF PRESENT ILLNESS: The patient was visited on rounds this morning approximately at 7:45. Her daughter was present. She is alert, oriented, a little bit confused possibly, but overall in pretty good shape. She has significant left hip pain primarily with flexion, extension, internal rotation and palpation. MRI scan normal for any type of occult fracture, tumor or any other type of bony pathology. CT scan negative as well. CT scan of the spine does demonstrate the compression fractures that are well documented. IMPRESSION: Contusion of the left hip, some intraarticular inflammatory process as well. PLAN: At this point in time, surgery would be contraindicated. The staff may consider intraarticular hip injection to her left hip that will be a reasonable approach under fluoroscopy with anesthesia. I will continue to follow the patient.
[2018-10-23] MEDS: DOCUSATE SODIUM 100 MG CAP PO SCH ×2 (09:09→21:48)
[2018-10-23] MEDS: AMLODIPINE BESYLATE 5 MG TAB PO SCH (09:09)
[2018-10-23] MEDS: ALLOPURINOL 100 MG TAB PO SCH ×2 (09:10→20:27)
[2018-10-23] MEDS: POLYETHYLENE (MIRALAX) 17 GM PACK PO SCH (09:10)
[2018-10-23] MEDS: BRIMONIDINE TARTRATE-P 0.15% 5 ML BTL OP SCH (09:10)
[2018-10-23] MEDS: INSULIN ASPART 100 UNITS/ML 3 ML PEN SC SCH ×4 (09:13→20:37)
[2018-10-23 09:42] LABS: Hematocrit (blood only) 37.9 % (37-47); Hemoglobin 12.6 g/dL (12.0-16.0); Mean Corpuscular Hgb Conc 33.2 g/dL (32-36); Mean Corpuscular Volume 99.7 fL (80-100); Mean Platelet Volume 10.1 fL (7.4-10.4); Platelet Count 222 K/uL (130-400); RDW Standard Deviation 50.3 fL (36.4-46.3); White Blood Count 8.94 K/uL (4.8-10.8)
[2018-10-23] MEDS ORDERED: INSULIN DETEMIR FLEXPEN/FLEX TOUCH 100 UNITS/ML 3ML SC STA (09:42)
[2018-10-23 10:14] LABS: BUN Creatinine Ratio 19.1 (10-20); Creatinine Clr Calc Pharmacy 32.4 ml/min; Est GFR (Non-African American) 34.5; Potassium 4.5 mmol/L (3.5-5.1)
[2018-10-23] MEDS: OXYCODONE HCL IR 5 MG TAB (IMMEDIATE RELEASE) PO PRN ×3 (10:59→20:24)
--- NOTE | 2018-10-23 14:30 | Hospitalist Progress Note ---
Date of Service October 23, 2018 Assessment & Plan (1) Lumbar compression fracture: (2) Fall: (3) Ambulatory dysfunction: -Hospital day #4 -Patient presented with fall when getting out of chair in middle of the night. Unable to get off floor for 6 hours. Denied dizziness, LOC, CP, SOB. C/O low back pain and hip pain -Lumbar CT: There is a moderate acute compression fracture of L4. No significantly retropulsed fragments are identified. There is a mild and age indeterminant superior endplate compression deformity of L3. No additional acute fracture is identified involving the lumbar spine. -Pelvis CT: There is no evidence of fracture involving the hips or bony pelvis. -CT Head: no acute changes -spine ortho consult -appreciate recommendations about brace -10/22/18: Patient continued to have severe left hip pain; MRI of the hip was obtained that was negative for acute bony findings -Today, patient reports pain is slightly improved. She received oxycodone 5 mg 30 minutes prior to therapy and was able to participate today. -Continue scheduled Tylenol -Anticipate discharge to [facility] tomorrow (4) HTN (hypertension): -BP remains intermittently elevated, likely secondary to pain -Low-dose amlodipine 2.5 mg started on 10/21 -Continue metoprolol -Continue monitor BP, make adjustments as needed (5) Diabetes mellitus, type II: -HbA1c: 7.9 on 06/2018 -Was hypoglycemic in the evening of 10/22/18, likely secondary to poor p.o. intake ; evening dose of Levemir was subsequently held -Improved appetite this morning with hyperglycemia -will give 15 units of Levemir now, with range dosing this evening pending blood sugar -Resume usual dose of Levemir 30 units in the evening tomorrow -NovoLog sliding scale per protocol -Hold Januvia (6) PMR (polymyalgia rheumatica): -Continue chronic prednisone (7) Hypothyroidism: -TSH: 0.57 on 06/2018 -Continue levothyroxine (8) CKD (chronic kidney disease), stage III: -Baseline creatinine 1.4-1.6 -Creatinine 1.4 10/23 -monitor renal functions (9) Dyslipidemia: -Continue statin (10) Depression: -Continue Lexapro (11) Peripheral neuropathy: -Patient reports does not take gabapentin as did not feel it was helpful (12) DVT prophylaxis: -SQ heparin (13) Discharge planning issues: -Likely discharge to [facility] tomorrow Supervising Physician Co-Signing Physician Notes Attending addendum The patient was seen and examined in medical floor She has been here with fall and lumbar compression fracture managed medically She will get physical therapy and likely to be transferred to [facility] tomorrow She was provided with a back brace to be as much as possible Besides back pain she does not have any symptoms On examining No apparent distress at rest Hemodynamically stable Chest-clear to auscultate Heart-S1-S2 regular Abdomen-benign Extremities-negative for any edema Extension of the legs-no focal neuro deficit Power seems to be reasonably 3-4 out of 5 on both sides without any radiculopathy Labs and imaging studies noted Agree with assessment and plan as outlined by Karen chavarria Subjective Patient seen and examined. Much improved this morning, much more alert with good appetite for breakfast. Reports left hip and low back pain is slightly improved from yesterday. Denies chest pain or shortness of breath. No abdominal pain or nausea. Passing flatus however no BM. Physical Exam 2 Vital Signs (Past 24 Hours): Last Vital Signs Temp 36.4 C L 10/23/18 07:19 Pulse 66 10/23/18 07:19 Resp 18 10/23/18 07:19 BP 178/78 H 10/23/18 07:19 Pulse Ox 96 10/23/18 07:19 Constitutional: WD/WN, vitals as above Respiratory: normal respiratory effort, lungs clear to auscultation Cardiovascular: Rate/Rhythm: regular rate and regular rhythm Vessels: normal peripheral pulses Extremities: no edema Gastrointestinal (Abdomen): Percussion/Palpation: abdomen soft; abdomen nontender Musculoskeletal: Pain continues with palpation over the left proximal thigh, mild improvement from yesterday Continued pain with minimal movement in the left hip and low back, patient reports mild improvement from yesterday Psychiatric: A+Ox3, euthymic affect Results & Data Laboratory Results Short CBC 10/23/18 Range/Units 09:17 WBC 8.94 (4.8-10.8) K/uL Hgb 12.6 (12.0-16.0) g/dL Hct 37.9 (37-47) % Plt Count 222 (130-400) K/uL BMP 10/23/18 09:17 Sodium 136 Potassium 4.5 Chloride 102 Carbon Dioxide 25 BUN 27 H Creatinine 1.43 H Glucose 301 H Calcium 9.0
[2018-10-23] MEDS: ESCITALOPRAM OXALATE 10 MG TAB PO SCH (20:27)
[2018-10-23] MEDS: LEVOTHYROXINE SODIUM 100 MCG TABLET PO SCH (20:27)
[2018-10-23] MEDS: ATORVASTATIN 40 MG TAB PO SCH (20:27)
[2018-10-23] MEDS: predniSONE 5 MG TAB PO SCH (20:27)
[2018-10-23] MEDS: METOPROLOL SUCC 50MG EXT REL TAB PO SCH (20:32)
[2018-10-23] MEDS ORDERED: INSULIN DETEMIR FLEXPEN/FLEX TOUCH 100 UNITS/ML 3ML SC ONE (21:00)
[2018-10-23] MEDS: LIDOCAINE 5% 1 PATCH TD SCH ×2 (23:52)
[2018-10-24] MEDS: ACETAMINOPHEN 325 MG TAB PO SCH ×4 (05:50→23:10)
[2018-10-24] MEDS: HEPARIN SOD 5,000 UNIT/0.5 ML VIAL SQ SCH ×3 (05:50→21:06)
[2018-10-24] MEDS: AMLODIPINE BESYLATE 5 MG TAB PO SCH (09:15)
[2018-10-24] MEDS: ALLOPURINOL 100 MG TAB PO SCH ×2 (09:16→21:14)
[2018-10-24] MEDS: DOCUSATE SODIUM 100 MG CAP PO SCH ×2 (09:18→21:04)
[2018-10-24] MEDS: BRIMONIDINE TARTRATE-P 0.15% 5 ML BTL OP SCH (09:18)
[2018-10-24] MEDS: INSULIN ASPART 100 UNITS/ML 3 ML PEN SC SCH ×4 (09:22→21:06)
[2018-10-24] MEDS: POLYETHYLENE (MIRALAX) 17 GM PACK PO SCH (09:26)
--- NOTE | 2018-10-24 09:59 | Hospitalist Progress Note ---
Date of Service October 24, 2018 Assessment & Plan (1) Lumbar compression fracture: (2) Fall: (3) Ambulatory dysfunction: -Hospital day #5 -Patient presented with fall when getting out of chair in middle of the night. Unable to get off floor for 6 hours. Denied dizziness, LOC, CP, SOB. C/O low back pain and hip pain -Lumbar CT: There is a moderate acute compression fracture of L4. No significantly retropulsed fragments are identified. There is a mild and age indeterminant superior endplate compression deformity of L3. No additional acute fracture is identified involving the lumbar spine. -Pelvis CT: There is no evidence of fracture involving the hips or bony pelvis. -CT Head: no acute changes -spine ortho consult -appreciate recommendations about brace -10/22/18: Patient continued to have severe left hip pain; MRI of the hip was obtained that was negative for acute bony findings -Pain continues to slightly improve. Patient is able to participate in therapy if she receives oxycodone 5 mg 30 minutes prior to therapy. -Receiving scheduled Tylenol -Anticipate discharge to [facility] today (4) HTN (hypertension): -BP remains intermittently elevated, likely secondary to pain -Low-dose amlodipine 2.5 mg started on 10/21 -Continue metoprolol -Continue monitor BP, make adjustments as needed (5) Diabetes mellitus, type II: -HbA1c: 7.9 on 06/2018 -Was hypoglycemic in the evening of 10/22/18, likely secondary to poor p.o. intake ; evening dose of Levemir was subsequently held -Appetite improved with improvement in blood sugars -Levemir resumed at usual dose of 30 units in the evening -NovoLog sliding scale per protocol -Hold Januvia (6) PMR (polymyalgia rheumatica): -Continue chronic prednisone (7) Hypothyroidism: -TSH: 0.57 on 06/2018 -Continue levothyroxine (8) CKD (chronic kidney disease), stage III: -Baseline creatinine 1.4-1.6 -Creatinine 1.4 10/23 -monitor renal functions (9) Dyslipidemia: -Continue statin (10) Depression: -Continue Lexapro (11) Peripheral neuropathy: -Patient reports does not take gabapentin as did not feel it was helpful (12) DVT prophylaxis: -SQ heparin (13) Discharge planning issues: -Likely discharge to [facility] today Supervising Physician Co-Signing Physician Notes Attending addendum The patient was seen and examined in medical floor in presence of the She still has some pain in the back but no other symptoms She has had physical therapy She she will be discharged to [facility] this afternoon On examination Remains stable in bed Hemodynamically stable Chest-clear Heart-regular no murmur Abdomen-benign Labs and imaging studies noted Agree with assessment and plan as outlined above by Karen chavarria Subjective Patient seen and examined. Feels well this a.m., offers no complaints. Continues to have low back and left hip pain however more controlled than yesterday. No chest pain or shortness of breath. No BM however passing flatus. Denies abdominal pain or nausea. Physical Exam 2 Vital Signs (Past 24 Hours): Last Vital Signs Temp 36.7 C 10/24/18 07:31 Pulse 64 10/24/18 07:31 Resp 18 10/24/18 07:31 BP 169/81 H 10/24/18 07:31 Pulse Ox 96 10/24/18 07:31 Constitutional: WD/WN, vitals as above Respiratory: normal respiratory effort, lungs clear to auscultation Cardiovascular: Rate/Rhythm: regular rate and regular rhythm Vessels: normal peripheral pulses Extremities: no edema Gastrointestinal (Abdomen): Percussion/Palpation: abdomen soft; abdomen nontender Musculoskeletal: Left hip and low back pain with movement - improving Psychiatric: A+Ox3, euthymic affect
--- NOTE | 2018-10-24 10:49 | Discharge Summary ---
Date of Service October 24, 2018 Admission HPI Per Admitting Provider Pt is 78 y/o F with PMH insulin dependent DM II, peripheral neuropathy, HTN, dyslipidemia, depression, GERD, hypothyroidism, PMR presented to ER with c/o fall. Pt reports chronic numbness bilateral feet. States fell asleep in chair last night and woke up, stood up to walk and thinks leg buckled and fell to floor and was unable to get up for approx 6 hours. C/O low back pain and right hip pain. Reports intense pain with attempt to ambulate and unable to ambulate. Denies any increased BLE paresthesias. Doesn't think hit her head. Remembers incident and denies LOC. Denies fever/chills, diaphoresis, N/V/D/C, PARHAM, dizziness, syncope, vision changes, neck pain, CP, SOB, orthopnea, palpitations , cough, sore throat, choking, otalgia, rhinorrhea, abdominal pain, extremity edema, rashes, urinary symptoms, loss control bowel/bladder, saddle paresthesias. Admission Exam Per Admitting Provider General: no acute distress, WDWN Head: normocephalic, atraumatic Eyes: PERRL, EOM's intact, conjunctiva non-injected, anicteric ENT: normal inspection external ears, nose, mucous membranes moist Neck: supple, trachea midline, non-tender Lungs: clear, no respiratory distress CV: RRR, no murmur, no pretibial edema Abd: normal BS, soft, non-tender Back: limited ROM, +tenderness to palpation lower back Ext: no cyanosis, no calf tenderness, +tenderness to right hip/pelvis, legs non- tender to palpation, ROM R and L leg with minimal hip flexion causes back pain, flexion and extension knees and ankles intact bilaterally. sensation to light touch intact, brisk capillary refill, distal pulses palpable. Neuro: A&O x 3, no focal deficits noted, normal affect Skin: warm, dry Principal Diagnosis Fall C4 Compression Fracture Ambulatory Dysfunction Discharge Data Allergies Allergy/AdvReac Type Severity Reaction Status Date / Time meperidine Allergy Hives Unverified 10/20/18 11:[address] Vanegas, spine orthopedics Ordered Studies HEAD CT IMPRESSION: There is no hemorrhage, mass effect, or evidence of acute territorial ischemia by CT criteria. PELVIS X-RAY IMPRESSION: 1. Osteopenia with no radiographic evidence of acute fracture involving the hips or bony pelvis. 2. There is no radiographic evidence of sacrococcygeal fracture. LUMBAR SPINE CT IMPRESSION: 1. There is a moderate acute compression fracture of L4. No significantly retropulsed fragments are identified. 2. There is a mild and age indeterminant superior endplate compression deformity of L3. 3. No additional acute fracture is identified involving the lumbar spine. 4. Nonobstructing left renal calculi. PELVIS CT IMPRESSION: 1. There is no evidence of fracture involving the hips or bony pelvis. 2. There is a moderate acute compression fracture of L4. No significantly retropulsed fragments are identified. 3. Osteopenia and degenerative change as above. HIP MRI IMPRESSION: 1. No acute pelvic fracture, dislocation or focal bone marrow edema. 2. Moderate degenerative changes about the bilateral femoral acetabular joints with trace bilateral joint effusions. 3. Moderate focal area of intramuscular edema about the inferomedial aspect of the right gluteus lucy suggests grade I or II muscle strain. 4. No evidence of bursitis. 5. Moderate bone marrow edema within the acute L4 compression deformity. Hospital Course (1) Lumbar compression fracture: (2) Fall: (3) Ambulatory dysfunction: -Patient presented with fall when getting out of chair in middle of the night. Unable to get off floor for 6 hours. Denied dizziness, LOC, CP, SOB. C/O low back pain and hip pain -Lumbar spine CT demonstrated compression fracture of L4 -Spine orthopedics was consulted who recommended brace to be applied at all times while out of bed; no surgery recommended at this time -10/22/18: Patient continued to have severe left hip pain; MRI of the hip was obtained that was negative for acute bony findings -Pain continues to slightly improve. Patient is able to participate in therapy if she receives oxycodone 5 mg 30 minutes prior to therapy. -Received scheduled Tylenol for pain control as well (4) HTN (hypertension): -BP remains intermittently elevated, likely secondary to pain -Low-dose amlodipine 2.5 mg started on 10/21 -Continue metoprolol (5) Diabetes mellitus, type II: -HbA1c: 7.9 on 06/2018 -Was hypoglycemic in the evening of 10/22/18, likely secondary to poor p.o. intake ; evening dose of Levemir was subsequently held -Appetite improved with improvement in blood sugars -Levemir resumed at usual dose of 30 units in the evening -Received NovoLog sliding scale per protocol while hospitalized -Resume Januvia and glimepiride at discharge (6) PMR (polymyalgia rheumatica): -Continue chronic prednisone (7) Hypothyroidism: -TSH: 0.57 on 06/2018 -Continue levothyroxine (8) CKD (chronic kidney disease), stage III: -Baseline creatinine 1.4-1.6 -Creatinine 1.4 10/23 (9) Dyslipidemia: -Continue statin (10) Depression: -Continue Lexapro (11) Peripheral neuropathy: -Prescribed gabapentin however patient reports she does not feel is helpful Total Time Total Time Spent Total Time Spent (In Minutes): 30 Discharge Plan Discharge Items Patient Disposition: Transfer Inpatient Rehab Fac Reason For Visit: FALL C L4 COMPRESSION FRACTURE Discharge Diagnosis: L4 compression fracture, ambulatory dysfunction Discharge Goals: Decrease discomfort and Improve function Activity: As commented below Activity Comment: Patient is to wear back brace at all times while out of bed. Further activity instructions as per therapy at [facility]. Non-emergency contact: Primary Care Provider Call non-emergency contact if: you have any medication questions, your symptoms worsen and your pain is not controlled Diet: Carb Consistent or DM2 and Heart Healthy Addtl Provider Instructions: Patient is to wear back brace at all times while out of bed. Follow-up with provider at [facility]. Medications as per med rec. Prescriptions: New polyethylene glycol 3350 [Miralax] 17 gram Powder In Packet 17 g PO DAILY Qty: 1 RF: 0 amlodipine [Norvasc] 5 mg Tablet 2.5 mg PO QAM 30 Days Qty: 15 RF: 0 docusate sodium 100 mg Capsule 100 mg PO BID Qty: 30 RF: 0 oxycodone 5 mg Tablet 5 mg PO Q4 PRN (Reason: pain) Qty: 15 RF: 0 Continue atorvastatin [Lipitor] 40 mg Tablet 40 mg PO QPM RF: 0 metoprolol succinate 100 mg Tablet Extended Release 24 Hr 100 mg PO QPM RF: 0 prednisone 5 mg Tablet 5 mg PO QPM RF: 0 allopurinol [Zyloprim] 100 mg Tablet 100 mg PO BID RF: 0 glimepiride 1 mg tablet 1 mg PO BID RF: 0 levothyroxine 100 mcg Tablet 100 mcg PO QPM RF: 0 gabapentin [Neurontin] 100 mg Capsule 100 mg PO TID RF: 0 brimonidine 0.15 % Drops 1 drp OPHTHALMIC (EYE) DAILY RF: 0 escitalopram oxalate 10 mg tablet 10 mg PO QPM RF: 0 insulin detemir U-100 [Levemir U-100 Insulin] 100 unit/mL solution 30 - 35 units subcut QPM RF: 0 sitagliptin [Januvia] 50 mg Tablet 50 mg PO QPM RF: 0 Stand-Alone Forms: [facility] Discharge Orders: Discharge Order (Routine); Ordered 10/24/18 Ordered By: Karen Chavez Skilled Items Patient informed of condition?: Yes DNR: No Discharge Level of Care: Acute rehab Communicable Disease: No Discharge Prognosis: Stable Admission Data Admit Date/Time: 10/21/18 14:20 Attending Provider: Brian Alvarado Admit Provider: Jeffy Nix Primary Care Provider: Judith Nelson Other Providers: Marky Vanegas ; Zach Mendez ; Jeffy Nix Service: Medical Supervising Physician Co-Signing Physician Notes Attending addendum. The patient was seen and examined in medical floor. She has been stable to be discharged to [facility] this afternoon. The discharge summary reviewed, the medications were reviewed to. I agree with with the discharge summary as outlined above by Karen CANSECO. Dr Kieran Alvarado
[2018-10-24] MEDS: OXYCODONE HCL IR 5 MG TAB (IMMEDIATE RELEASE) PO PRN (14:50)
[2018-10-24] MEDS: INSULIN DETEMIR FLEXPEN/FLEX TOUCH 100 UNITS/ML 3ML SC SCH (21:04)
[2018-10-24] MEDS: ATORVASTATIN 40 MG TAB PO SCH (21:07)
[2018-10-24] MEDS: ESCITALOPRAM OXALATE 10 MG TAB PO SCH (21:07)
[2018-10-24] MEDS: LEVOTHYROXINE SODIUM 100 MCG TABLET PO SCH (21:08)
[2018-10-24] MEDS: predniSONE 5 MG TAB PO SCH (21:08)
[2018-10-24] MEDS: METOPROLOL SUCC 50MG EXT REL TAB PO SCH (21:13)
[2018-10-24] MEDS: LIDOCAINE 5% 1 PATCH TD SCH (23:10)
[2018-10-25] MEDS: OXYCODONE HCL IR 5 MG TAB (IMMEDIATE RELEASE) PO PRN ×3 (01:57→11:52)
[2018-10-25] MEDS: ACETAMINOPHEN 325 MG TAB PO SCH ×2 (05:32→11:51)
[2018-10-25] MEDS: HEPARIN SOD 5,000 UNIT/0.5 ML VIAL SQ SCH ×2 (05:32→13:03)
[2018-10-25] MEDS: BRIMONIDINE TARTRATE-P 0.15% 5 ML BTL OP SCH (08:31)
[2018-10-25] MEDS: ALLOPURINOL 100 MG TAB PO SCH (08:31)
[2018-10-25] MEDS: AMLODIPINE BESYLATE 5 MG TAB PO SCH (08:31)
[2018-10-25] MEDS: DOCUSATE SODIUM 100 MG CAP PO SCH (08:32)
[2018-10-25] MEDS: POLYETHYLENE (MIRALAX) 17 GM PACK PO SCH (08:35)
[2018-10-25 08:59] LABS: Basophils # (auto) 0.02 K/uL (0-0.2); Basophils % (auto) 0.1 %; Eosinophils # (auto) 0.11 K/uL (0-0.5); Eosinophils % (auto) 0.8 %; Hematocrit (blood only) 37.8 % (37-47); Hemoglobin 12.6 g/dL (12.0-16.0); Immature Granulocytes # (auto) 0.05 K/uL (0.00-0.02); Immature Granulocytes % (auto) 0.4 %; Lymphocytes # (auto) 3.19 K/uL (1.2-3.4); Lymphocytes % (auto) 23.3 %; Mean Corpuscular Hgb Conc 33.3 g/dL (32-36); Mean Corpuscular Volume 99.7 fL (80-100); Mean Platelet Volume 9.8 fL (7.4-10.4); Monocytes # (auto) 0.86 K/uL (0.11-0.59); Monocytes % (auto) 6.3 %; Neutrophils # (auto) 9.49 K/uL (1.4-6.5); Neutrophils % (auto) 69.1 %; Platelet Count 252 K/uL (130-400); RDW Coefficient of Variation 13.9 % (11.5-14.5); RDW Standard Deviation 49.8 fL (36.4-46.3); Red Blood Count 3.79 M/uL (4.2-5.4); White Blood Count 13.72 K/uL (4.8-10.8)
[2018-10-25] MEDS: INSULIN ASPART 100 UNITS/ML 3 ML PEN SC SCH ×2 (09:30→13:31)
[2018-10-25 09:35] LABS: BUN Creatinine Ratio 24.6 (10-20); Calcium 9.3 mg/dl (8.5-10.1); Creatinine Clr Calc Pharmacy 29.9 ml/min; Est GFR (African American) 36.3; Est GFR (Non-African American) 31.3; Potassium 4.4 mmol/L (3.5-5.1)
--- NOTE | 2018-10-25 12:11 | Hospitalist Progress Note ---
Date of Service October 25, 2018 Assessment & Plan (1) Lumbar compression fracture: Was evaluated by Ortho Has been prescribed a brace Continue physical therapy (2) Fall: (3) Ambulatory dysfunction: -Patient presented with fall when getting out of chair in middle of the night. Unable to get off floor for 6 hours. Denied dizziness, LOC, CP, SOB. C/O low back pain and hip pain -Lumbar spine CT demonstrated compression fracture of L4 -Spine orthopedics was consulted who recommended brace to be applied at all times while out of bed; no surgery recommended at this time -10/22/18: Patient continued to have severe left hip pain; MRI of the hip was obtained that was negative for acute bony findings -Pain continues to slightly improve. Patient is able to participate in therapy if she receives oxycodone 5 mg 30 minutes prior to therapy. -Received scheduled Tylenol for pain control as well -Continue physical therapy at [facility] as advised (4) HTN (hypertension): -BP remains intermittently elevated, likely secondary to pain -Low-dose amlodipine 2.5 mg started on 10/21 -Continue metoprolol -Blood pressure is controlled (5) Diabetes mellitus, type II: -HbA1c: 7.9 on 06/2018 -Was hypoglycemic in the evening of 10/22/18, likely secondary to poor p.o. intake ; evening dose of Levemir was subsequently held -Appetite improved with improvement in blood sugars -Levemir resumed at usual dose of 30 units in the evening -Received NovoLog sliding scale per protocol while hospitalized -Resume Januvia and glimepiride at discharge (6) PMR (polymyalgia rheumatica): -Continue chronic prednisone (7) Hypothyroidism: -TSH: 0.57 on 06/2018 -Continue levothyroxine (8) CKD (chronic kidney disease), stage III: -Baseline creatinine 1.4-1.6 -Creatinine 1.4 10/23 -Creatinine is slightly up at 1.55 today (9) Dyslipidemia: -Continue statin (10) Depression: -Continue Lexapro -No acute anxiety (11) Peripheral neuropathy: -Prescribed gabapentin however patient reports she does not feel is helpful Subjective 10/25 The patient was seen and examined the medical floor She still complains to have some back pain Denies any other symptoms She has been waiting to go to [facility] today Physical Exam 2 Vital Signs (Past 24 Hours): Last Vital Signs Temp 36.4 C L 10/25/18 11:41 Pulse 60 10/25/18 11:41 Resp 18 10/25/18 11:41 BP 145/82 H 10/25/18 11:41 Pulse Ox 93 10/25/18 11:41 Physical Exam: Lying in bed comfortably without any symptoms Constitutional: WD/WN, vitals as above Eyes: PERRL, conjunctivae normal, anicteric sclerae ENMT: external ear and nose normal, oropharynx normal Respiratory: normal respiratory effort, lungs clear to auscultation Cardiovascular: Rate/Rhythm: regular rate and regular rhythm Vessels: normal peripheral pulses Extremities: no edema Gastrointestinal (Abdomen): Percussion/Palpation: abdomen soft; abdomen nontender Neurologic: awake Alert and oriented x3. No focal neuro deficit Psychiatric: A+Ox3, euthymic affect Results & Data Laboratory Results Short CBC 10/25/18 Range/Units 08:33 WBC 13.72 H (4.8-10.8) K/uL Hgb 12.6 (12.0-16.0) g/dL Hct 37.8 (37-47) % Plt Count 252 (130-400) K/uL BMP 10/25/18 08:33 Sodium 136 Potassium 4.4 Chloride 104 Carbon Dioxide 25 BUN 38 H Creatinine 1.55 H Glucose 170 H Calcium 9.3 Medications Administered Current Inpatient Medications Acetaminophen (Tylenol) 650 mg PO Q6H ROBERT Stop: 11/20/18 11:59 Last Admin: 10/25/18 11:51 Dose: 650 mg Allopurinol (Zyloprim) 100 mg PO BID ROBERT Stop: 11/19/18 20:59 Last Admin: 10/25/18 08:31 Dose: 100 mg Amlodipine Besylate (Norvasc) 2.5 mg PO QAM ROBERT Stop: 11/21/18 08:59 Last Admin: 10/25/18 08:31 Dose: 2.5 mg Atorvastatin Calcium (Lipitor) 40 mg PO QPM ROBERT Stop: 11/19/18 20:59 Last Admin: 10/24/18 21:07 Dose: 40 mg Brimonidine Tartrate (Alphagan-P 0.15%) 1 drops OP DAILY ROBERT Stop: 11/20/18 08:59 Last Admin: 10/25/18 08:31 Dose: Not Given Cyclobenzaprine HCl (Flexeril) 5 mg PO TID PRN PRN Reason: pain Stop: 11/21/18 13:59 Last Admin: 10/22/18 13:29 Dose: 5 mg Dextrose (Dextrose 50%) 25 - 50 ml IV UD PRN; Protocol PRN Reason: Hypoglycemia Protocol Stop: 11/19/18 19:18 Last Admin: 10/22/18 17:09 Dose: 25 ml Docusate Sodium (Colace) 100 mg PO BID ROBERT Stop: 11/21/18 09:59 Last Admin: 10/25/18 08:32 Dose: 100 mg Escitalopram Oxalate (Lexapro) 10 mg PO QPM ROBERT Stop: 11/19/18 20:59 Last Admin: 10/24/18 21:07 Dose: 10 mg Glucagon (Glucagen) 1 mg SQ UD PRN; Protocol PRN Reason: Hypoglycemia Protocol Stop: 11/19/18 19:18 Glucose (Glucose 40%) 15 - 30 gm PO UD PRN; Protocol PRN Reason: Hypoglycemia Protocol Stop: 11/19/18 19:18 Glucose (Dex4 Glucose) 4 - 8 tabs PO UD PRN; Protocol PRN Reason: Hypoglycemia Protocol Stop: 11/19/18 19:18 Heparin Sodium (Porcine) (Heparin Sodium (Porcine)) 5,000 units SQ Q8 ROBERT Stop: 11/19/18 21:59 Last Admin: 10/25/18 05:32 Dose: 5,000 units Insulin Aspart (Novolog Flexpen) 0 units SC ACHS ROBERT Stop: 11/19/18 20:59 Last Admin: 10/25/18 09:30 Dose: 4 units Insulin Detemir (Levemir Flextouch) 30 units SC PM ROBERT Stop: 11/19/18 20:59 Last Admin: 10/24/18 21:04 Dose: 30 units Levothyroxine Sodium (Synthroid) 100 mcg PO QPM ROBERT Stop: 11/19/18 20:59 Last Admin: 10/24/18 21:08 Dose: 100 mcg Lidocaine (Lidoderm 5%) 1 patch TD Q24H ROBERT Stop: 11/19/18 22:59 Last Admin: 10/24/18 23:10 Dose: 1 patch Metoprolol Succinate (Toprol Xl) 100 mg PO QPM ROBERT Stop: 11/19/18 20:59 Last Admin: 10/24/18 21:13 Dose: 100 mg Miscellaneous (Carbohydrates For Hypoglycemia) 15 - 30 gm PO UD PRN PRN Reason: Hypoglycemia Treatment Stop: 11/19/18 19:18 Miscellaneous (Remove Lidoderm Patch) 1 ea N/A Q24H ROBERT Stop: 11/20/18 10:59 Last Admin: 10/25/18 10:53 Dose: 1 ea Morphine Sulfate (Morphine Sulfate) 3 mg IV Q3H PRN PRN Reason: Pain Stop: 11/04/18 14:42 Last Admin: 10/22/18 18:56 Dose: 3 mg Ondansetron HCl (Zofran) 4 mg IV Q6H PRN PRN Reason: Nausea Stop: 11/19/18 16:59 Oxycodone HCl (Roxicodone Immediate Rel) 5 mg PO Q4 PRN PRN Reason: Pain Stop: 11/03/18 16:59 Last Admin: 10/25/18 11:52 Dose: 5 mg Polyethylene Glycol (Miralax Powder Packet) 17 gm PO DAILY ROBERT Stop: 11/21/18 09:59 Last Admin: 10/25/18 08:35 Dose: 17 gm Prednisone (Prednisone) 5 mg PO QPM ROBERT Stop: 11/19/18 20:59 Last Admin: 10/24/18 21:08 Dose: 5 mg
[2018-10-25] MEDS ORDERED: OXYCODONE HCL IR 5 MG TAB (IMMEDIATE RELEASE) PO PRN (12:37)
== END 2018-10-25 16:09 | DRG 552 ==
LOC: 2N 10:23 → ED 10:23 → 2N 16:45 → SUATTDRO 10-21 14:20 → 4W 10-22 15:12

== ENCOUNTER 2018-10-27 12:35 | Inpatient (IN) ==
[2018-10-27] MEDS ORDERED: DEXTROSE 50% 50 ML SYRINGE IV ONE (13:09)
[2018-10-27 13:23] LABS: Hematocrit (blood only) 37.1 % (37-47); Hemoglobin 12.4 g/dL (12.0-16.0); Mean Corpuscular Hgb Conc 33.4 g/dL (32-36); Mean Platelet Volume 9.8 fL (7.4-10.4); Platelet Count 285 K/uL (130-400); RDW Coefficient of Variation 13.8 % (11.5-14.5); RDW Standard Deviation 50.3 fL (36.4-46.3); Red Blood Count 3.71 M/uL (4.2-5.4); White Blood Count 17.72 K/uL (4.8-10.8)
[2018-10-27 13:31] LABS: INR 1.1 (0.9-1.1); Partial Thromboplastin Time 24.9 Seconds (21.0-31.0)
--- NOTE | 2018-10-27 13:32 | CT Scan Report ---
CT OF THE HEAD WITHOUT CONTRAST CLINICAL HISTORY: Stroke evaluation. COMPARISON STUDY: Head CT October 20, 2018. CT DOSE: 1228.53 mGy.cm TECHNIQUE: Helical axial images of the head were obtained without IV contrast. Automated exposure con trol was utilized for the study. A dose lowering technique was utilized adhering to the principles o f ALARA. FINDINGS: No acute intracranial hemorrhage, midline shift or mass effect is present. Ventricular syst em is stable. White matter hypodensities are unchanged. These suggest small vessel disease. There are no findings to suggest acute dural sinus thrombosis or acute territorial infarct. There are no significant calvarial abnormality. There is mild right posterior ethmoid sinus mucosal t hickening. IMPRESSION: No acute intracranial findings. Electronically signed by: Sb Ann M.D. 10/27/2018 1:31 PM
[2018-10-27 13:44] LABS: Alanine Aminotransferase 46 U/L (12-78); Aspartate Aminotransferase 38 U/L (15-37); BUN Creatinine Ratio 30.3 (10-20); Bilirubin Direct 0.2 mg/dl (0-0.2); Blood Urea Nitrogen 50 mg/dl (7-18); Calcium 9.1 mg/dl (8.5-10.1); Carbon Dioxide 28 mmol/L (21-32); Chloride 103 mmol/L (98-107); Creatinine Clr Calc Pharmacy 28.8 ml/min; Est GFR (African American) 33.6; Glucose 49 mg/dl (70-99); Magnesium 2.6 mg/dl (1.8-2.4); Potassium 3.9 mmol/L (3.5-5.1); Sodium 137 mmol/L (136-145)
[2018-10-27 13:47] LABS: Alkaline Phosphatase 71 U/L (45-117); Bilirubin,Total 0.5 mg/dl (0.2-1); Total Protein 7.5 gm/dl (6.4-8.2); Troponin I < 0.015 ng/ml (0-0.045)
[2018-10-27 13:50] LABS: Eosinophils # (manual) 0.32 K/uL (0-0.5); Lymphocytes # (manual) 2.85 K/uL (1.2-3.4); Lymphocytes % (manual) 16.1 %; Monocytes # (manual) 1.12 K/uL (0.11-0.59); Monocytes % (manual) 6.3 %; Neutrophils % (manual) 53.5 %; Reactive Lymphocytes # (manual) 3.95 K/uL
[2018-10-27] MEDS ORDERED: SODIUM CHLORIDE 0.9% 500 ML IV ONE (14:39)
[2018-10-27 14:54] LABS: Appearance Urine Turbid (Clear); Bacteria Urine Automated 1+ (Negative); Bilirubin Urine Negative (Negative); Color Urine Yellow; Epithelial Cell Urine Auto >30 /lpf (0-5); Glucose Urine UA Negative (Negative); Ketones Urine Negative (Negative); Leukocyte Esterase Urine 3+ (Negative); Nitrite Urine Negative (Negative); Protein Urine 1+ (Negative); Specific Gravity Urine 1.015 (1.000-1.030); Urobilinogen Urine Negative (Negative); WBC Urine Automated >30 /hpf (0-5)
--- NOTE | 2018-10-27 15:00 | XRay Report ---
XR chest 1V portable CLINICAL HISTORY: Evaluate for pneumonia. COMPARISON STUDY: No previous studies for comparison. FINDINGS: Lung volumes are mildly diminished. There is no pneumothorax or pleural effusion. Mild card iomegaly is noted. There is mitral annular calcification. There is no consolidation to suggest pneumo ascencion. Mild interstitial thickening is noted. Patient is mildly rotated. IMPRESSION: Mild cardiomegaly. Mild interstitial thickening which is age indeterminate although prob ably chronic. No definite acute findings. Electronically signed by: Sb Ann M.D. 10/27/2018 2:58 PM
--- NOTE | 2018-10-27 16:14 | History & Physical Report ---
Date of Service October 27, 2018 Assessment & Plan (1) Dysarthria: Patient was sent in from [facility] with dysarthria and possible right facial droop Stroke alert was called She did not have any stroke and/or TIA,and her neurological symptoms resolved Her symptoms were secondary to profound hypoglycemia and Complicated by UTI Her initial CAT scan was negative for any stroke She will have an MRI of the brain-Acute punctate lacunar infarcts seen within the ruddy and left caudate head. Present on Admission?: Yes (2) Hypoglycemia: She has diabetes on insulin and oral hypoglycemic agent Her blood sugar in the emergency room was noted to be 49 Her symptoms of dysarthria and confusion likely secondary to low blood sugar She received appropriate treatment for that Her insulin doses decreased and her blood sugar will be monitored Oral hypoglycemic agents on hold now Present on Admission?: Yes (3) UTI (urinary tract infection): She did have frequency and dysuria as per the daughter Her UA is suggestive of UTI She has increased white cell count She was started with intravenous ceftriaxone and culture was sent Present on Admission?: Yes (4) Diabetes mellitus, type II: We will continue her regular insulin with reduced dose Oral hypoglycemic agent will be on hold SSI (5) PMR (polymyalgia rheumatica): (6) Hypothyroidism: Continue replacement (7) Compression fracture of lumbar vertebra: We will continue physical therapy Pain medications as prescribed (8) HTN (hypertension): BP is controlled Continue current medications DVT prophylaxis With subcu Lovenox PT and OT evaluation (9) Stroke: Acute punctate lacunar infarcts seen within the ruddy and left caudate head. No residual effect History of Present Illness Chief Complaint: Noted to have confusion with dysarthria and possible Right facial droopThis afternoon Primary Care Provider: James Hargrove DO She is an 78-year-old white Female with significant past medical history includingType 2 diabetes on insulin, Ambulatory dysfunction with recent fall and lumbar compression fracture, Chronic kidney disease stage III, polymyalgia rheumatica, hypertension, hyperlipidemia, GERDAnd hypothyroidism was admitted from [facility] with acute confusion, dysarthria with questionable right facial droop and noted to have a blood sugar of 49 with possible UTI and on presentation to the emergency room. The patient was seen and examined in presence of 3 daughters. She denies any neurologic symptoms during my examination and her dysarthria is almost gone. She was evaluated by telemetry neurologist and did not have any evidence of stroke. Her CAT scan of the head remain unremarkable and she will have an MRI to complete the test. She denies to have any fever and/or chills, any chest pain and/or palpitation more shortness of breath, any abdominal pain nausea and/or vomiting, she did have some frequency of urination but no problem with bowel habit and she denies to have any headache any blurred vision any numbness or tingling involving any of the extremities. She was recently discharged from the hospital following fall and compression fracture of lumbar vertebrae. She was in [facility] for continued rehabilitation Allergies Allergy/AdvReac Type Severity Reaction Status Date / Time meperidine Allergy Hives Unverified 10/20/18 11:10 Home Medications Home Medications Medication Instructions Recorded Confirmed Type acetaminophen [Acetaminophen Extra 500 mg PO Q4H PRN 10/27/18 10/27/18 History Strength] allopurinol 100 mg PO Q12 10/27/18 10/27/18 History amlodipine 2.5 mg PO DAILY 10/27/18 10/27/18 History atorvastatin 40 mg PO HS 10/27/18 10/27/18 History bisacodyl 10 mg PA DAILY PRN 10/27/18 10/27/18 History brimonidine [Alphagan P] 1 drp OPB DAILY 10/27/18 10/27/18 History docusate sodium [Colace] 100 mg PO BID 10/27/18 10/27/18 History enoxaparin [Lovenox] 40 mg SUBCUT DAILY@19 10/27/18 10/27/18 History escitalopram oxalate [Lexapro] 10 mg PO HS 10/27/18 10/27/18 History glimepiride 1 mg PO BIDM 10/27/18 10/27/18 History insulin aspart U-100 [Novolog 0 unit SUBCUT ACHS 10/27/18 10/27/18 History Flexpen U-100 Insulin] insulin glargine [Lantus Solostar 30 unit SUBCUT HS 10/27/18 10/27/18 History U-100 Insulin] levothyroxine 100 mcg PO QAM 10/27/18 10/27/18 History magnesium hydroxide [Milk Of 30 ml PO DAILY PRN 10/27/18 10/27/18 History Magnesia Concentrated] metoprolol succinate [Toprol XL] 100 mg PO HS 10/27/18 10/27/18 History oxycodone 5 mg PO QID 10/27/18 10/27/18 History prednisone 5 mg PO HS 10/27/18 10/27/18 History sennosides [senna] 8.6 mg PO QAM PRN 10/27/18 10/27/18 History sitagliptin [Januvia] 50 mg PO HS 10/27/18 10/27/18 History zolpidem [Ambien] 5 mg PO HS PRN 10/27/18 10/27/18 History Past Med/Surg History Medical History Depression (Chronic) CKD (chronic kidney disease), stage III (Chronic) PMR (polymyalgia rheumatica) (Chronic) Hypothyroidism (Chronic) GERD (gastroesophageal reflux disease) (Chronic) Peripheral neuropathy (Chronic) HTN (hypertension) (Chronic) Dyslipidemia (Chronic) Diabetes mellitus, type II (Chronic) Neuropathy Surgical History Hx of tonsillectomy (Resolved) History of cholecystectomy (Resolved) History of appendectomy (Resolved) History of cataract extraction with lens replacement (Resolved) Family History Daughter Diabetes borderline Other No pertinent family history Social History marital status: Current Living Situation: Rehab current occupational status: retired Other Information That Helps Us Care for You: No Feels Safe at Home: Yes Safety Concerns: Feels Safe At This Time Smoking Status: Never smoker Do You Dip or Chew Tobacco: No Second Hand Exposure: No Tobacco Cessation Education Requested by Patient: No Hx Alcohol Use: No Hx Substance Use: No Beliefs That Will Affect Care: None Preferred Language: Frisian Communication Ability: Effective Communication Ability Comment: minimal slurring of words [employer] Required: No Review of Systems All systems reviewed & are unremarkable except as noted in HPI & below Physical Exam 2 Vital Signs (Past 24 Hours): Last Vital Signs Temp 36.9 C 10/27/18 12:40 Pulse 73 10/27/18 16:06 Resp 19 10/27/18 16:06 BP 189/115 H 10/27/18 16:06 Pulse Ox 92 10/27/18 16:06 Physical Exam: Lying in bed comfortably Constitutional: WD/WN, vitals as above no acute distress Minimal dysarthria likely secondary to dry mouth Eyes: PERRL, conjunctivae normal, anicteric sclerae ENMT: external ear and nose normal, oropharynx normal Respiratory: normal respiratory effort; no respiratory distress Auscultation: + diminished lung sounds (Without any wheezing and/or crackles) Cardiovascular: Rate/Rhythm: regular rate and regular rhythm Heart Sounds: normal S1 and normal S2 Gastrointestinal (Abdomen): Inspection/Auscultation: abdomen normal to inspection and normal bowel sounds Percussion/Palpation: abdomen soft Neurologic: normal touch/pain/proprioception, moves all extremities and awake ; + abnormal sensation to monofilament and no focal motor deficits No facial asymmetry and/or droop.,Alert and awake and oriented x3 Results & Data Laboratory Results Short CBC 10/27/18 Range/Units 13:11 WBC 17.72 H (4.8-10.8) K/uL Hgb 12.4 (12.0-16.0) g/dL Hct 37.1 (37-47) % Plt Count 285 (130-400) K/uL BMP 10/27/18 13:11 Sodium 137 Potassium 3.9 Chloride 103 Carbon Dioxide 28 BUN 50 H Creatinine 1.65 H Glucose 49 L* Calcium 9.1 Cardiac Enzymes 10/27/18 Range/Units 13:11 Troponin I < 0.015 (0-0.045) ng/ml Liver Function 10/27/18 Range/Units 13:11 Total Bilirubin 0.5 (0.2-1) mg/dl Direct Bilirubin 0.2 (0-0.2) mg/dl AST 38 H (15-37) U/L ALT 46 (12-78) U/L Alkaline Phosphatase 71 (45-117) U/L Albumin 3.0 L (3.4-5.0) gm/dl Urine 10/27/18 Range/Units 14:45 Urine Color Yellow Urine Appearance Turbid H (Clear) Urine pH 5.0 (4.5-7.5) Ur Specific [place] 1.015 (1.000-1.030) Urine Protein 1+ H (Negative) Urine Glucose (UA) Negative (Negative) Medications Administered Current Inpatient Medications Ceftriaxone Sodium (Rocephin) 1,000 mg in 50 mls @ 100 mls/hr IV DAILY STA Stop: 10/27/18 16:32 Code Status & VTE Plan Code Status Full code VTE Prophylaxis Plan VTE Prophylaxis will be ordered: Yes _ (1) UTI (urinary tract infection) Encounter type: Hematuria presence: with hematuria Indwelling urinary catheter type: Urinary tract infection type: site unspecified Qualified Code( s): N39.0 - Urinary tract infection, site not specified; R31.9 - Hematuria, unspecified (2) Compression fracture of lumbar vertebra Encounter type: initial encounter Fracture healing: Fracture type: closed Lumbar vertebra fracture level: L4 Qualified Code(s): S32.040A - Wedge compression fracture of fourth lumbar vertebra, initial encounter for closed fracture
--- NOTE | 2018-10-27 16:15 | Emergency Department Note ---
Entered by Esther Pat acting as a scribe for Gelacio Roberts MD History of Present Illness General Chief complaint: Stroke/CVA Symptoms Source: patient and family Limitations: altered mental status History of Present Illness Provider complaint: stroke symptoms Onset (ago): hour(s) (around 1130/1145) Location: face Quality: + other (stroke symptoms) Associated symptoms: + other (slurred speech, facial droop) The patient is an 78 year old female who presents to the Emergency Room with complaints of stroke symptoms beginning around 1130/1145 today. Per family, the patient was at rehab when her family noticed a facial droop and reports that the patient was unable to speak. Her family states that when the patient could talk that her speech was slurred and that she had a hard time understanding the patient. Her family states that she is at [facility] for a compression fracture. Her family states that the patient has been taking pain medications which her family states make the patient "out of it." Her family states that she noticed that the patient was more "out of it" today. Her family states that the nurse also noticed a change in the patient from this morning. Her family states that the patient has a history of a mini-stroke. The patient states that she is unsure what is going on. Her family states that the patient was given Lovenox when she was in the hospital. Limited HPI secondary to altered mental status. Home Medications Home Medications Medication Instructions Recorded Confirmed Type acetaminophen [Acetaminophen Extra 500 mg PO Q4H PRN 10/27/18 10/27/18 History Strength] allopurinol 100 mg PO Q12 10/27/18 10/27/18 History amlodipine 2.5 mg PO DAILY 10/27/18 10/27/18 History atorvastatin 40 mg PO HS 10/27/18 10/27/18 History bisacodyl 10 mg OH DAILY PRN 10/27/18 10/27/18 History brimonidine [Alphagan P] 1 drp OPB DAILY 10/27/18 10/27/18 History docusate sodium [Colace] 100 mg PO BID 10/27/18 10/27/18 History enoxaparin [Lovenox] 40 mg SUBCUT DAILY@19 10/27/18 10/27/18 History escitalopram oxalate [Lexapro] 10 mg PO HS 10/27/18 10/27/18 History glimepiride 1 mg PO BIDM 10/27/18 10/27/18 History insulin aspart U-100 [Novolog 0 unit SUBCUT ACHS 10/27/18 10/27/18 History Flexpen U-100 Insulin] insulin glargine [Lantus Solostar 30 unit SUBCUT HS 10/27/18 10/27/18 History U-100 Insulin] levothyroxine 100 mcg PO QAM 10/27/18 10/27/18 History magnesium hydroxide [Milk Of 30 ml PO DAILY PRN 10/27/18 10/27/18 History Magnesia Concentrated] metoprolol succinate [Toprol XL] 100 mg PO HS 10/27/18 10/27/18 History oxycodone 5 mg PO QID 10/27/18 10/27/18 History prednisone 5 mg PO HS 10/27/18 10/27/18 History sennosides [senna] 8.6 mg PO QAM PRN 10/27/18 10/27/18 History sitagliptin [Januvia] 50 mg PO HS 10/27/18 10/27/18 History zolpidem [Ambien] 5 mg PO HS PRN 10/27/18 10/27/18 History Allergies Allergy/AdvReac Type Severity Reaction Status Date / Time meperidine Allergy Hives Unverified 10/20/18 11:10 Past Med/Surg History Medical History Depression (Chronic) CKD (chronic kidney disease), stage III (Chronic) PMR (polymyalgia rheumatica) (Chronic) Hypothyroidism (Chronic) GERD (gastroesophageal reflux disease) (Chronic) Peripheral neuropathy (Chronic) HTN (hypertension) (Chronic) Dyslipidemia (Chronic) Diabetes mellitus, type II (Chronic) Neuropathy Surgical History Hx of tonsillectomy (Resolved) History of cholecystectomy (Resolved) History of appendectomy (Resolved) History of cataract extraction with lens replacement (Resolved) Family History Daughter Diabetes borderline Other No pertinent family history Social History marital status: Current Living Situation: Alone current occupational status: retired Feels Safe at Home: Yes Smoking Status: Former smoker Second Hand Exposure: No Hx Alcohol Use: No Hx Substance Use: No Beliefs That Will Affect Care: None Preferred Language: Niuean Review of Systems Limited ROS secondary to altered mental status. Physical Exam Vital Signs Vital Signs - 24 hr 10/27/18 12:40 10/27/18 13:30 10/27/18 14:05 Temperature 36.9 C Temperature Source Oral Sepsis Recent Fever Within 48 Hours No Sepsis New/Unexplained Change in Mental Status Yes Sepsis Action Taken by Nursing No Action Required Pulse Rate 70 Pulse Rate [Apical] 76 75 Respiratory Rate 18 15 16 Respiratory Effort / Characteristics Non-Labored Spontaneous Respiratory Depth Normal Respiratory Pattern Regular Blood Pressure 141/74 H Blood Pressure [Left Arm] 189/111 H 164/78 H Blood Pressure Mean 96 Blood Pressure Mean [Left Arm] 137 106 Pulse Oximetry 94 95 93 Oxygen Delivery Method Room Air Room Air Room Air 10/27/18 14:33 10/27/18 15:07 10/27/18 16:06 Temperature Temperature Source Sepsis Recent Fever Within 48 Hours Sepsis New/Unexplained Change in Mental Status Sepsis Action Taken by Nursing Pulse Rate Pulse Rate [Apical] 72 71 73 Respiratory Rate 16 20 19 Respiratory Effort / Characteristics Respiratory Depth Respiratory Pattern Blood Pressure Blood Pressure [Left Arm] 169/88 H 153/90 H 189/115 H Blood Pressure Mean Blood Pressure Mean [Left Arm] 115 111 139 Pulse Oximetry 93 93 92 Oxygen Delivery Method Room Air Room Air Room Air Constitutional: Vital signs reviewed. Exam is somewhat limited as the patient does not follow all commands. Eyes: Pupils are equal round reactive to light. Conjunctiva are noninjected. ENT: Pharynx is clear without erythema or exudate. Mucous membranes are moist. Neck supple without meningeal signs. Respiratory: Clear to auscultation bilaterally. Breath sounds are equal bilaterally. Cardiovascular: Regular rate and rhythm. No rubs or gallops. GI: Soft, nondistended and nontender. Bowel sounds are present. Musculoskeletal: No peripheral edema. No lower extremity tenderness. Integumentary: No cyanosis. or jaundice. Neurologic: The patient is awake and alert. No facial droop is noted. Motor is intact in all extremities. Sensation is intact to light touch all extremities. She does have some difficulty naming objects as well as some expressive aphasia. Psychiatric: Unable to assess. Course 1256: Past medical records reviewed. The patient was evaluated in room B9, and a complete history and physical examination were performed. 1304: A stroke alert was called on the patient. 1310: The patient's sugar is 50. She was given IV D50. 1330: I discussed the patient's case with Dr. Diaz Neurology who feels that she is an increased risk for bleeding for tPA given her compression fracture. He will assess the patient. 1335: I spoke to [facility] who said that the patient ate 75% of her breakfast plate. She received 2 units of Novalog but did not eat lunch. She received 5 mg of Oxycodone for her pain. 1339: I rechecked the patient. She is still confused. She is unable to name her daughter. She does not know where she is or how she got here. She is having expressive aphasia. Her blood sugar is over 200. I had a long discussion with her daughters regarding the risks and benefits of IV tPA. We are waiting Marina's assessment. 1350: I reassessed the patient. She is still slurring her words and confused. She is on the bed troy waiting for Dr. Carter. 1402: The patient is being evaluated by Dr. Gray. 1420: I spoke to the patient's family and Dr. Gray who after the assessment does not recommend tPA. The patient's family is in agreement at this time. Dr. Gray said to admit the patient for encephalopathy and an MRI. 1445: We obtained the urine from the patient. It is cloudy and we are waiting for the UA. I updated the patient's family. 1458: I discussed the patient's case with Dr. Arevalo who will evaluate the patient for further management. Consultations Consultation #1: Dr. Diaz Neurology Time: 13:30 Consultation #2: Dr. Arevalo Time: 14:58 Administered Medications Discontinued Medications Dextrose (Dextrose 50%) Confirm Administered Dose 50 ml IV .STK-MED ONE Stop: 10/27/18 13:10 Last Admin: 10/27/18 13:12 Dose: 50 ml Sodium Chloride (Nss) 500 mls @ 999 mls/hr IV .Q31M ONE Stop: 10/27/18 15:09 Last Infusion: 10/27/18 15:26 Dose: 0 mls/hr Admin: 10/27/18 14:43 Dose: 999 mls/hr Medical Decision Making Differential Diagnosis The patient is an 78 year old female who presents to the ED with stroke symptoms. Differential diagnosis includes metabolic derangement, hypoglycemia, medication adverse effect, CVA, ICH, and infection. Medical Records Attestation: I reviewed the patient's medical records. Home Medications Current Medication List: was personally reviewed by me Laboratory Data Attestation: I reviewed the patient's lab results. Result diagrams: 10/27/18 13:11 10/27/18 13:11 Lab Results 10/27/18 10/27/18 10/27/18 Range/Units 13:08 13:11 13:11 WBC 17.72 H (4.8-10.8) K/uL RBC 3.71 L (4.2-5.4) M/uL Hgb 12.4 (12.0-16.0) g/dL Hct 37.1 (37-47) % MCV 100.0 (80-100) fL MCH 33.4 (25-34) pg MCHC 33.4 (32-36) g/dL RDW Std Deviation 50.3 H (36.4-46.3) fL RDW Coeff of Mansi 13.8 (11.5-14.5) % Plt Count 285 (130-400) K/uL MPV 9.8 (7.4-10.4) fL Neutrophils % (Manual) 53.5 % Lymphocytes % (Manual) 16.1 % Reactive Lymphs % (Man) 22.3 % Monocytes % (Manual) 6.3 % Eosinophils % (Manual) 1.8 % Neutrophils # (Manual) 9.48 H (1.4-6.5) K/uL Total Absolute Neuts 9.48 H (1.4-6.5) K/uL Lymphocytes # (Manual) 2.85 (1.2-3.4) K/uL Reactive Lymphs # 3.95 K/uL Total Abs Lymphocytes 6.80 H (1.2-3.4) K/uL Monocytes # (Manual) 1.12 H (0.11-0.59) K/uL Eosinophils # (Manual) 0.32 (0-0.5) K/uL PT 11.0 (9.0-12.0) Seconds INR 1.1 (0.9-1.1) APTT 24.9 (21.0-31.0) Seconds PTT Ratio 1.0 Sodium (136-145) mmol/L Potassium (3.5-5.1) mmol/L Chloride (98-107) mmol/L Carbon Dioxide (21-32) mmol/L Anion Gap (3-11) BUN (7-18) mg/dl Creatinine (0.6-1.2) mg/dl Est Cr Clr Drug Dosing ml/min Est GFR ( Amer) Est GFR (Non-Af Amer) BUN/Creatinine Ratio (10-20) Glucose (70-99) mg/dl POC Glucose 57 L* (70-99) Calcium (8.5-10.1) mg/dl Magnesium (1.8-2.4) mg/dl Total Bilirubin (0.2-1) mg/dl Direct Bilirubin (0-0.2) mg/dl AST (15-37) U/L ALT (12-78) U/L Alkaline Phosphatase (45-117) U/L Troponin I (0-0.045) ng/ml Total Protein (6.4-8.2) gm/dl Albumin (3.4-5.0) gm/dl Urine Color Urine Appearance (Clear) Urine pH (4.5-7.5) Ur Specific [place] (1.000-1.030) Urine Protein (Negative) Urine Glucose (UA) (Negative) Urine Ketones (Negative) Urine Blood (Negative) Urine Nitrite (Negative) Urine Bilirubin (Negative) Urine Urobilinogen (Negative) Ur Leukocyte Esterase (Negative) Urine WBC (Auto) (0-5) /hpf Urine RBC (Auto) (0-4) /hpf U Hyaline Cast (Auto) (0-5) /lpf U Epithel Cells (Auto) (0-5) /lpf Urine Bacteria (Auto) (Negative) Urine Yeast Blood Type Antibody Screen 10/27/18 10/27/18 10/27/18 Range/Units 13:11 13:11 13:30 WBC (4.8-10.8) K/uL RBC (4.2-5.4) M/uL Hgb (12.0-16.0) g/dL Hct (37-47) % MCV (80-100) fL MCH (25-34) pg MCHC (32-36) g/dL RDW Std Deviation (36.4-46.3) fL RDW Coeff of Mansi (11.5-14.5) % Plt Count (130-400) K/uL MPV (7.4-10.4) fL Neutrophils % (Manual) % Lymphocytes % (Manual) % Reactive Lymphs % (Man) % Monocytes % (Manual) % Eosinophils % (Manual) % Neutrophils # (Manual) (1.4-6.5) K/uL Total Absolute Neuts (1.4-6.5) K/uL Lymphocytes # (Manual) (1.2-3.4) K/uL Reactive Lymphs # K/uL Total Abs Lymphocytes (1.2-3.4) K/uL Monocytes # (Manual) (0.11-0.59) K/uL Eosinophils # (Manual) (0-0.5) K/uL PT (9.0-12.0) Seconds INR (0.9-1.1) APTT (21.0-31.0) Seconds PTT Ratio Sodium 137 (136-145) mmol/L Potassium 3.9 (3.5-5.1) mmol/L Chloride 103 (98-107) mmol/L Carbon Dioxide 28 (21-32) mmol/L Anion Gap 6.0 (3-11) BUN 50 H (7-18) mg/dl Creatinine 1.65 H (0.6-1.2) mg/dl Est Cr Clr Drug Dosing 28.8 ml/min Est GFR ( Amer) 33.6 Est GFR (Non-Af Amer) 29.0 BUN/Creatinine Ratio 30.3 H (10-20) Glucose 49 L* (70-99) mg/dl POC Glucose 234 H (70-99) Calcium 9.1 (8.5-10.1) mg/dl Magnesium 2.6 H (1.8-2.4) mg/dl Total Bilirubin 0.5 (0.2-1) mg/dl Direct Bilirubin 0.2 (0-0.2) mg/dl AST 38 H (15-37) U/L ALT 46 (12-78) U/L Alkaline Phosphatase 71 (45-117) U/L Troponin I < 0.015 (0-0.045) ng/ml Total Protein 7.5 (6.4-8.2) gm/dl Albumin 3.0 L (3.4-5.0) gm/dl Urine Color Urine Appearance (Clear) Urine pH (4.5-7.5) Ur Specific [place] (1.000-1.030) Urine Protein (Negative) Urine Glucose (UA) (Negative) Urine Ketones (Negative) Urine Blood (Negative) Urine Nitrite (Negative) Urine Bilirubin (Negative) Urine Urobilinogen (Negative) Ur Leukocyte Esterase (Negative) Urine WBC (Auto) (0-5) /hpf Urine RBC (Auto) (0-4) /hpf U Hyaline Cast (Auto) (0-5) /lpf U Epithel Cells (Auto) (0-5) /lpf Urine Bacteria (Auto) (Negative) Urine Yeast Blood Type A Positive Antibody Screen NEGATIVE 10/27/18 Range/Units 14:45 WBC (4.8-10.8) K/uL RBC (4.2-5.4) M/uL Hgb (12.0-16.0) g/dL Hct (37-47) % MCV (80-100) fL MCH (25-34) pg MCHC (32-36) g/dL RDW Std Deviation (36.4-46.3) fL RDW Coeff of Mansi (11.5-14.5) % Plt Count (130-400) K/uL MPV (7.4-10.4) fL Neutrophils % (Manual) % Lymphocytes % (Manual) % Reactive Lymphs % (Man) % Monocytes % (Manual) % Eosinophils % (Manual) % Neutrophils # (Manual) (1.4-6.5) K/uL Total Absolute Neuts (1.4-6.5) K/uL Lymphocytes # (Manual) (1.2-3.4) K/uL Reactive Lymphs # K/uL Total Abs Lymphocytes (1.2-3.4) K/uL Monocytes # (Manual) (0.11-0.59) K/uL Eosinophils # (Manual) (0-0.5) K/uL PT (9.0-12.0) Seconds INR (0.9-1.1) APTT (21.0-31.0) Seconds PTT Ratio Sodium (136-145) mmol/L Potassium (3.5-5.1) mmol/L Chloride (98-107) mmol/L Carbon Dioxide (21-32) mmol/L Anion Gap (3-11) BUN (7-18) mg/dl Creatinine (0.6-1.2) mg/dl Est Cr Clr Drug Dosing ml/min Est GFR ( Amer) Est GFR (Non-Af Amer) BUN/Creatinine Ratio (10-20) Glucose (70-99) mg/dl POC Glucose (70-99) Calcium (8.5-10.1) mg/dl Magnesium (1.8-2.4) mg/dl Total Bilirubin (0.2-1) mg/dl Direct Bilirubin (0-0.2) mg/dl AST (15-37) U/L ALT (12-78) U/L Alkaline Phosphatase (45-117) U/L Troponin I (0-0.045) ng/ml Total Protein (6.4-8.2) gm/dl Albumin (3.4-5.0) gm/dl Urine Color Yellow Urine Appearance Turbid H (Clear) Urine pH 5.0 (4.5-7.5) Ur Specific Alma 1.015 (1.000-1.030) Urine Protein 1+ H (Negative) Urine Glucose (UA) Negative (Negative) Urine Ketones Negative (Negative) Urine Blood 2+ H (Negative) Urine Nitrite Negative (Negative) Urine Bilirubin Negative (Negative) Urine Urobilinogen Negative (Negative) Ur Leukocyte Esterase 3+ H (Negative) Urine WBC (Auto) >30 H (0-5) /hpf Urine RBC (Auto) >30 H (0-4) /hpf U Hyaline Cast (Auto) 5-10 H (0-5) /lpf U Epithel Cells (Auto) >30 H (0-5) /lpf Urine Bacteria (Auto) 1+ H (Negative) Urine Yeast Not Reportable Blood Type Antibody Screen Imaging Data Radiologist's Impression: Radiology results as stated below per my review and the radiologist's interpretation: CT OF THE HEAD WITHOUT CONTRAST CLINICAL HISTORY: Stroke evaluation. COMPARISON STUDY: Head CT October 20, 2018. CT DOSE: 1228.53 mGy.cm TECHNIQUE: Helical axial images of the head were obtained without IV contrast. Automated exposure control was utilized for the study. A dose lowering technique was utilized adhering to the principles of ALARA. FINDINGS: No acute intracranial hemorrhage, midline shift or mass effect is present. Ventricular system is stable. White matter hypodensities are unchanged. These suggest small vessel disease. There are no findings to suggest acute dural sinus thrombosis or acute territorial infarct. There are no significant calvarial abnormality. There is mild right posterior ethmoid sinus mucosal thickening. IMPRESSION: No acute intracranial findings. Electronically signed by: Sb Ann M.D. 10/27/2018 1:31 PM XR chest 1V portable CLINICAL HISTORY: Evaluate for pneumonia. COMPARISON STUDY: No previous studies for comparison. FINDINGS: Lung volumes are mildly diminished. There is no pneumothorax or pleural effusion. Mild cardiomegaly is noted. There is mitral annular calcification. There is no consolidation to suggest pneumonia. Mild interstitial thickening is noted. Patient is mildly rotated. IMPRESSION: Mild cardiomegaly. Mild interstitial thickening which is age indeterminate although probably chronic. No definite acute findings. Electronically signed by: Sb Ann M.D. 10/27/2018 2:58 PM ECG Data Attestation: I personally reviewed and interpreted this ECG as follows: Indication: other (neurologic symptoms) Rate (beats per minute): 71 Rhythm: normal sinus Findings: no PVC and no ST elevation Blood Pressure Blood Pressure Findings: Elevated blood pressure Blood Pressure Disposition: Referred to patients primary care provider MDM Narrative I did perform a limited focused review of portions of the patient's old chart on the electronic medical record. The patient was here and discharged on the for a compression fracture of the lumbar spine. I did evaluate the patient as noted above. Patient is presenting with a change in mental status. Her daughter also noted a facial droop on the right side but also stated that she was lying on her right side at the time and that the facial droop resolved. She does have persistent expressive aphasia here and some dysarthria. I therefore called a stroke alert. IV access was established. The patient was placed on a continuous classroom monitor. A bedside glucose was obtained and was 50. She was immediately given IV D50. On recheck her blood sugar was over 200 but she still remained confused with difficulty with her speech. I did order and personally review the patient's 12- lead EKG and chest x-ray as described above. Twelve-lead EKG is unremarkable. Chest x-ray does not show any signs of pneumonia. I did order and review the patient's blood work as noted in the electronic medical record. Her white count is elevated but she is on prednisone. She also has hypoglycemia. Renal function is slightly above baseline. I did order a stat CT of the head. I did review the images myself as well as the radiology report as described above. There is no evidence of acute intracranial hemorrhage. I did discuss the case with the [place] neurologist who evaluated her via telemedicine. I did have a discussion with the daughters regarding IV TPA. Dr. Angel and myself did not recommend IV TPA at this time giving the multitude of other factors that may be contributing to her change in mental status. Also she would be at increased risk of bleeding in her spine because of her recent compression fracture. She has been on [id number] oxycodone which may be accumulating due to her poor renal function. She also has a UTI on urine analysis here. There are other reasons for her symptoms and therefore using shared decision- making it was decided that she would not receive IV TPA. I did reassess the patient multiple times. I did discuss case with the hospitalist and case management assistant. Impression & Plan Expressive aphasia, Dysarthria, Leukocytosis, Hypoglycemia, UTI (urinary tract infection) Critical Care Time I have personally spent 40 minutes of critical care time in the direct management of this patient. This includes bedside care, interpretation of diagnostic studies and testing, discussion with consultants and patient, and other required patient management activities. This time is in excess of all separately billable procedures. Discharge Plan Visit Data Chief Complaint: Stroke/CVA Symptoms ED Provider: Gelacio Roberts Discharge Problem: Expressive aphasia, Dysarthria, Leukocytosis, Hypoglycemia, UTI (urinary tract infection) Patient Disposition: Being Evaluated by Hospitalist Forms Stand Alone Forms: My [facility] [employer] Report Prescriptions Prescriptions: No Action atorvastatin 40 mg Tablet 40 mg PO HS RF: 0 sennosides [senna] 8.6 mg Tablet 8.6 mg PO QAM PRN (Reason: Constipation) RF: 0 metoprolol succinate [Toprol XL] 100 mg Tablet Extended Release 24 Hr 100 mg PO HS RF: 0 prednisone 5 mg Tablet 5 mg PO HS RF: 0 amlodipine 2.5 mg Tablet 2.5 mg PO DAILY RF: 0 allopurinol 100 mg Tablet 100 mg PO Q12 RF: 0 acetaminophen [Acetaminophen Extra Strength] 500 mg Tablet 500 mg PO Q4H PRN (Reason: Pain) RF: 0 glimepiride 1 mg Tablet 1 mg PO BIDM RF: 0 levothyroxine 100 mcg Tablet 100 mcg PO QAM RF: 0 bisacodyl 10 mg Suppository 10 mg OH DAILY PRN (Reason: Constipation) RF: 0 docusate sodium [Colace] 100 mg Capsule 100 mg PO BID RF: 0 zolpidem [Ambien] 5 mg Tablet 5 mg PO HS PRN (Reason: Insomnia) RF: 0 brimonidine [Alphagan P] 0.15 % Drops 1 drp OPB DAILY RF: 0 oxycodone 5 mg Tablet 5 mg PO QID RF: 0 enoxaparin [Lovenox] 40 mg/0.4 mL Syringe 40 mg SUBCUT DAILY@19 RF: 0 escitalopram oxalate [Lexapro] 10 mg Tablet 10 mg PO HS RF: 0 insulin aspart U-100 [Novolog Flexpen U-100 Insulin] 100 unit/mL Insulin Pen SUBCUT ACHS RF: 0 sitagliptin [Januvia] 50 mg Tablet 50 mg PO HS RF: 0 magnesium hydroxide [Milk Of Magnesia Concentrated] 2,400 mg/10 mL Suspension 30 ml PO DAILY PRN (Reason: Constipation) RF: 0 insulin glargine [Lantus Solostar U-100 Insulin] 100 unit/mL (3 mL) Insulin Pen 30 unit SUBCUT HS RF: 0 Referrals Referrals: James Hargrove DO [Primary Care Provider] - The scribe's documentation has been prepared under my direction and personally reviewed by me in its entirety. I confirm that the note above accurately reflects all work, treatment, procedures, and medical decision making performed by me.
[2018-10-27] MEDS ORDERED: cefTRIAXone SODIUM 1,000 MG/50 ML BAG IV STA (16:26)
--- NOTE | 2018-10-27 17:46 | Magnetic Resonance Report ---
Brain MRI WITHOUT CONTRAST HISTORY: Stroke symptoms. r/o stroke TECHNIQUE: Multiplanar multisequence MRI of the brain was performed without the use of contrast. COMPARISON STUDY: Head CT 10/27/2018. FINDINGS: There is no mass, hematoma, midline shift, or acute infarct. The mastoid air cells are jennifer r. The ventricles and sulci demonstrate mild age-related involutional changes. Scattered foci of T2 h yperintensity seen within the periventricular and subcortical white matter are nonspecific but sugges tive of mild microvascular ischemic changes. The major vascular flow voids at the skull base are well -maintained. There is a punctate focus of restricted diffusion to within the ruddy consistent with an acute lacunar infarct. There may be 2 additional punctate foci of restricted diffusion seen within th e left caudate head which would also be consistent with acute lacunar infarcts. Incidental note is ma de of a partially empty sella. Mild mucosal thickening within the right posterior ethmoid air cell. T he remaining paranasal sinuses are clear. Old lacunar infarcts seen within the left basal ganglia and left thalamus. IMPRESSION: Acute punctate lacunar infarcts seen within the ruddy and left caudate head. Electronically signed by: Raúl Rm M.D. 10/27/2018 5:45 PM
[2018-10-27] MEDS ORDERED: ZOLPIDEM TARTRATE 5 MG TAB PO PRN (18:02)
[2018-10-27] MEDS ORDERED: BISACODYL 10 MG SUPP PR PRN (18:02)
[2018-10-27] MEDS ORDERED: ACETAMINOPHEN 500 MG TAB PO PRN (18:02)
[2018-10-27] MEDS ORDERED: SENNA 8.6 MG TAB PO PRN (18:02)
[2018-10-27] MEDS ORDERED: GLUCOSE 40% GEL 15 GM TUBE PO PRN (18:05)
[2018-10-27] MEDS ORDERED: DEXTROSE 50% 50 ML SYRINGE IV PRN (18:05)
[2018-10-27] MEDS ORDERED: CARBOHYDRATES FOR HYPOGLYCEMIA PO PRN (18:05)
[2018-10-27] MEDS ORDERED: GLUCAGON FOR INJ 1 MG VIAL IM PRN (18:05)
[2018-10-27] MEDS ORDERED: GLUCOSE 10 TABS/TUBE PO PRN (18:05)
[2018-10-27] MEDS ORDERED: MAGNESIUM HYDROXIDE SUSP 30 ML UDC PO PRN (18:08)
[2018-10-27] MEDS: INSULIN ASPART 100 UNITS/ML 3 ML PEN SQ SCH ×2 (18:30→21:01)
[2018-10-27] MEDS: ENOXAPARIN INJ 40 MG/0.4 ML SYR SQ SCH (18:34)
[2018-10-27] MEDS ORDERED: CLOPIDOGREL BISULFATE 75 MG TAB PO ONE (20:30)
[2018-10-27] MEDS: OXYCODONE HCL IR 5 MG TAB (IMMEDIATE RELEASE) PO SCH (20:57)
[2018-10-27] MEDS: ASPIRIN 325 MG ECTAB PO SCH (20:59)
[2018-10-27] MEDS: predniSONE 5 MG TAB PO SCH (20:59)
[2018-10-27] MEDS: DOCUSATE SODIUM 100 MG CAP PO SCH (20:59)
[2018-10-27] MEDS: METOPROLOL SUCC 50MG EXT REL TAB PO SCH (21:00)
[2018-10-27] MEDS: ALLOPURINOL 100 MG TAB PO SCH (21:00)
[2018-10-27] MEDS ORDERED: METOPROLOL SUCC 50MG EXT REL TAB PO SCH ×2 (21:00)
[2018-10-27] MEDS: ESCITALOPRAM OXALATE 10 MG TAB PO SCH (21:00)
[2018-10-27] MEDS: ATORVASTATIN 40 MG TAB PO SCH (21:00)
[2018-10-27] MEDS: INSULIN GLARGINE SOLOSTAR 100 UNITS/ML 3 ML PEN SQ SCH (21:03)
[2018-10-28] MEDS: LEVOTHYROXINE SODIUM 100 MCG TABLET PO SCH (05:58)
[2018-10-28 06:24] LABS: Basophils # (auto) 0.02 K/uL (0-0.2); Basophils % (auto) 0.2 %; Eosinophils # (auto) 0.11 K/uL (0-0.5); Eosinophils % (auto) 0.9 %; Hematocrit (blood only) 36.7 % (37-47); Hemoglobin 12.4 g/dL (12.0-16.0); Immature Granulocytes # (auto) 0.11 K/uL (0.00-0.02); Immature Granulocytes % (auto) 0.9 %; Lymphocytes # (auto) 2.38 K/uL (1.2-3.4); Lymphocytes % (auto) 18.7 %; Mean Corpuscular Hgb Conc 33.8 g/dL (32-36); Mean Corpuscular Volume 100.8 fL (80-100); Mean Platelet Volume 9.6 fL (7.4-10.4); Monocytes # (auto) 0.82 K/uL (0.11-0.59); Monocytes % (auto) 6.4 %; Neutrophils # (auto) 9.31 K/uL (1.4-6.5); Neutrophils % (auto) 72.9 %; Platelet Count 277 K/uL (130-400); RDW Coefficient of Variation 13.8 % (11.5-14.5); RDW Standard Deviation 50.5 fL (36.4-46.3); Red Blood Count 3.64 M/uL (4.2-5.4); White Blood Count 12.75 K/uL (4.8-10.8)
[2018-10-28 06:54] LABS: BUN Creatinine Ratio 27.4 (10-20); Creatinine Clr Calc Pharmacy 30.3 ml/min; Est GFR (African American) 36.8; Est GFR (Non-African American) 31.8; Potassium 4.2 mmol/L (3.5-5.1)
[2018-10-28] MEDS: ASPIRIN 325 MG ECTAB PO SCH (08:59)
[2018-10-28] MEDS: OXYCODONE HCL IR 5 MG TAB (IMMEDIATE RELEASE) PO SCH ×4 (08:59→20:14)
[2018-10-28] MEDS: AMLODIPINE BESYLATE 5 MG TAB PO SCH (08:59)
[2018-10-28] MEDS: DOCUSATE SODIUM 100 MG CAP PO SCH ×2 (08:59→20:00)
[2018-10-28] MEDS: ALLOPURINOL 100 MG TAB PO SCH ×2 (08:59→20:06)
[2018-10-28] MEDS: CLOPIDOGREL BISULFATE 75 MG TAB PO SCH (09:00)
[2018-10-28] MEDS: INSULIN ASPART 100 UNITS/ML 3 ML PEN SQ SCH ×4 (09:00→20:21)
--- NOTE | 2018-10-28 13:59 | Neurology Consultation ---
Date of Consultation October 28, 2018 Assessment & Plan (1) Expressive aphasia: 1. MRI - acute lacunar infarcts, small ruddy infarct 2. TTE- will need evaluation 3. carotid doppler- should be done and further evaluation may be needed with CTA head and neck 4. was not on aspirin prior aspirin 81 mg started 5. Lipid profile -needs to be assessed 6. continue atorvastatin 40 mg hs may need increased 7. optimize DM, HLD, HTN- LDL < 70 as outpatient - [facility] 611, unable to obtain LDL - 07/24/2018 8. PT/OT speech for discharge needs follow up 4-6 weeks after discharge from [facility] Uyen Paul PAC neurology schedule. Supervising Physician Co-Signing Physician Notes I have seen and discussed above patient with Dr Mason Hassan. Patient was seen and examined. I agree with Uyen Paul PA-C as noted below. Admitted with intermittent confusion, facial droop, and slurred speech per daughter. MRI brain reviewed and shows punctate acute infarcts in brainstem and left basal ganglia. Also found to have UTI. Unclear if intermittent symptoms yesterday were secondary to UTI Vs punctate infarcts on MRI. On examine she is alert and oriented. comprehension is intact. Face appears symmetric. Symptoms have improved. Patient started on Abx for UTI. Recommend starting ASA 81 mg daily and high intensity statin SBP goal <140 mm Hg, DBP <90 mm Hg HA1c goal <7 Will defer Abx treatment of UTI per primary team. Please obtain Carotid US and TTE with shunt continue Telemerty Will like need 30-day event monitoring on discharge for eval or paroxysmal afib based off MRI findings Discussed with patient and daughter at bedside. Will continue to follow. History of Present Illness Reason for Consultation: ? acute infarct on MRI Requesting Physician: Brian Alvarado MD Attending Physician: Brian Alvarado MD History of Present Illness Maggie is an 78 year old female with PMH DM2 on insulin, ambulatory dysfunction with recent fall and lumbar compression fracture, peripheral neuropathy, CKD III , polymyalgia rheumatica, HTN, HLD, GERD and hypothyroidism was admitted from [facility] with acute confusion, dysarthria with questionable right facial droop and noted to have a blood sugar of 49 with possible UTI. She was brought to the ED for evaluation. Once she was seen in the ED she was back to baseline and her dysarthria is almost gone. She was evaluated by telemetry neurologist and did not have any evidence of stroke. She was recently discharged from the hospital following fall and compression fracture of lumbar vertebrae and was at [facility] for further rehab prior to returning home. denies CP, SOB, abdominal pain, weakness, numbness tingling, N, V, bowel or bladder issues. Allergies Allergy/AdvReac Type Severity Reaction Status Date / Time meperidine Allergy Hives Unverified 10/20/18 11:10 Home Medications Home Medications Medication Instructions Recorded Confirmed Type acetaminophen [Acetaminophen Extra 500 mg PO Q4H PRN 10/27/18 10/27/18 History Strength] allopurinol 100 mg PO Q12 10/27/18 10/27/18 History amlodipine 2.5 mg PO DAILY 10/27/18 10/27/18 History atorvastatin 40 mg PO HS 10/27/18 10/27/18 History bisacodyl 10 mg NC DAILY PRN 10/27/18 10/27/18 History brimonidine [Alphagan P] 1 drp OPB DAILY 10/27/18 10/27/18 History docusate sodium [Colace] 100 mg PO BID 10/27/18 10/27/18 History enoxaparin [Lovenox] 40 mg SUBCUT DAILY@19 10/27/18 10/27/18 History escitalopram oxalate [Lexapro] 10 mg PO HS 10/27/18 10/27/18 History glimepiride 1 mg PO BIDM 10/27/18 10/27/18 History insulin aspart U-100 [Novolog 0 unit SUBCUT ACHS 10/27/18 10/27/18 History Flexpen U-100 Insulin] insulin glargine [Lantus Solostar 30 unit SUBCUT HS 10/27/18 10/27/18 History U-100 Insulin] levothyroxine 100 mcg PO QAM 10/27/18 10/27/18 History magnesium hydroxide [Milk Of 30 ml PO DAILY PRN 10/27/18 10/27/18 History Magnesia Concentrated] metoprolol succinate [Toprol XL] 100 mg PO HS 10/27/18 10/27/18 History oxycodone 5 mg PO QID 10/27/18 10/27/18 History prednisone 5 mg PO HS 10/27/18 10/27/18 History sennosides [senna] 8.6 mg PO QAM PRN 10/27/18 10/27/18 History sitagliptin [Januvia] 50 mg PO HS 10/27/18 10/27/18 History zolpidem [Ambien] 5 mg PO HS PRN 10/27/18 10/27/18 History Patient History Medical History Depression (Chronic) CKD (chronic kidney disease), stage III (Chronic) PMR (polymyalgia rheumatica) (Chronic) Hypothyroidism (Chronic) GERD (gastroesophageal reflux disease) (Chronic) Peripheral neuropathy (Chronic) HTN (hypertension) (Chronic) Dyslipidemia (Chronic) Diabetes mellitus, type II (Chronic) Neuropathy Surgical History Hx of tonsillectomy (Resolved) History of cholecystectomy (Resolved) History of appendectomy (Resolved) History of cataract extraction with lens replacement (Resolved) Family History Daughter Diabetes borderline Other No pertinent family history Social History marital status: / Current Living Situation: Rehab current occupational status: retired Other Information That Helps Us Care for You: No Feels Safe at Home: Yes Safety Concerns: Feels Safe At This Time Smoking Status: Never smoker Do You Dip or Chew Tobacco: No Second Hand Exposure: No Tobacco Cessation Education Requested by Patient: No Hx Alcohol Use: No Hx Substance Use: No Beliefs That Will Affect Care: None Communication Ability: Effective Physical Exam 2 Vital Signs (Past 24 Hours): Last Vital Signs Temp 36.4 C L 10/28/18 11:38 Pulse 65 10/28/18 11:38 Resp 18 10/28/18 11:38 BP 120/71 10/28/18 11:38 Pulse Ox 96 10/28/18 11:38 Physical Exam: Constitutional: appearance over nourished, normal Ears, Nose, Mouth and Throat: mucous membranes moist, no injection and skin normal, eyes normal Cardiovascular: normal S-1 and S-2 and regular rate and rhythm Respiratory: clear to auscultation (CTA) and no rales, ronchi or wheeze Musculoskeletal: no peripheral edema and good distal pulses Skin: no stigmata of neurocutaneous disease noted and normal and intact Eyes: extraocular muscles intact (EOMI) and pupils equal, round and reactive to light (PERRL) no gaze preference NEUROLOGIC EXAMINATION: Mental status: Alert and interactive Oriented person, 2019, president Stef, can say no ifs ands or buts, able to stick out tongue, close eyes point to ceiling with left hand Speech fluent with no evidence of aphasia Cranial Nerves smile symmetric, eye brows symmetric Reflexes: Deep tendon reflexes were symmetrical and graded 2/5. Plantar responses neutral Sensory: + deficits bilaterally LE to mid calf to vibration Coordination: finger to nose no bi pass, mild fine tremor Gait/Stance: Posture normal. sitting in bed Motor: Negative for pronator drift of out stretched arms with eyes closed. Strength: biceps triceps hand automotive parts coordinator bilaterally 5/5, hip flex 4/5, plantar flex ext 5/5 Results & Data Laboratory Results Abnormal lab results 10/27/18 10/27/18 10/27/18 Range/Units 13:08 13:30 14:45 WBC (4.8-10.8) K/uL RBC (4.2-5.4) M/uL Hct (37-47) % MCV (80-100) fL MCH (25-34) pg RDW Std Deviation (36.4-46.3) fL Immature Gran # (Auto) (0.00-0.02) K/uL Neut # (Auto) (1.4-6.5) K/uL Dale # (Auto) (0.11-0.59) K/uL BUN (7-18) mg/dl Creatinine (0.6-1.2) mg/dl BUN/Creatinine Ratio (10-20) Glucose (70-99) mg/dl POC Glucose 57 L* 234 H (70-99) Urine Appearance Turbid H (Clear) Urine Protein 1+ H (Negative) Urine Blood 2+ H (Negative) Ur Leukocyte Esterase 3+ H (Negative) Urine WBC (Auto) >30 H (0-5) /hpf Urine RBC (Auto) >30 H (0-4) /hpf U Hyaline Cast (Auto) 5-10 H (0-5) /lpf U Epithel Cells (Auto) >30 H (0-5) /lpf Urine Bacteria (Auto) 1+ H (Negative) 10/27/18 10/28/18 10/28/18 Range/Units 20:21 06:04 06:04 WBC 12.75 H (4.8-10.8) K/uL RBC 3.64 L (4.2-5.4) M/uL Hct 36.7 L (37-47) % MCV 100.8 H (80-100) fL MCH 34.1 H (25-34) pg RDW Std Deviation 50.5 H (36.4-46.3) fL Immature Gran # (Auto) 0.11 H (0.00-0.02) K/uL Neut # (Auto) 9.31 H (1.4-6.5) K/uL Dale # (Auto) 0.82 H (0.11-0.59) K/uL BUN 42 H (7-18) mg/dl Creatinine 1.53 H (0.6-1.2) mg/dl BUN/Creatinine Ratio 27.4 H (10-20) Glucose 150 H (70-99) mg/dl POC Glucose 189 H (70-99) Urine Appearance (Clear) Urine Protein (Negative) Urine Blood (Negative) Ur Leukocyte Esterase (Negative) Urine WBC (Auto) (0-5) /hpf Urine RBC (Auto) (0-4) /hpf U Hyaline Cast (Auto) (0-5) /lpf U Epithel Cells (Auto) (0-5) /lpf Urine Bacteria (Auto) (Negative) 10/28/18 10/28/18 Range/Units 07:14 11:25 WBC (4.8-10.8) K/uL RBC (4.2-5.4) M/uL Hct (37-47) % MCV (80-100) fL MCH (25-34) pg RDW Std Deviation (36.4-46.3) fL Immature Gran # (Auto) (0.00-0.02) K/uL Neut # (Auto) (1.4-6.5) K/uL Dale # (Auto) (0.11-0.59) K/uL BUN (7-18) mg/dl Creatinine (0.6-1.2) mg/dl BUN/Creatinine Ratio (10-20) Glucose (70-99) mg/dl POC Glucose 140 H 101 H (70-99) Urine Appearance (Clear) Urine Protein (Negative) Urine Blood (Negative) Ur Leukocyte Esterase (Negative) Urine WBC (Auto) (0-5) /hpf Urine RBC (Auto) (0-4) /hpf U Hyaline Cast (Auto) (0-5) /lpf U Epithel Cells (Auto) (0-5) /lpf Urine Bacteria (Auto) (Negative) Diagnostic Findings MRI brain- Acute punctate lacunar infarcts seen within the ruddy and left caudate head. CXR- Mild cardiomegaly. Mild interstitial thickening which is age indeterminate although probably chronic. No definite acute findings. CT head-No acute intracranial findings.
--- NOTE | 2018-10-28 15:35 | Hospitalist Progress Note ---
Date of Service October 28, 2018 Assessment & Plan (1) Stroke: Admitted with the strokelike symptoms which resolved MRI;;Acute punctate lacunar infarcts seen within the ruddy and left caudate head. No residual effect of his stroke Denies any neurological symptoms today (2) Dysarthria: Patient was sent in from [facility] with dysarthria and possible right facial droop Stroke alert was called She did not have any stroke and/or TIA,and her neurological symptoms resolved Her symptoms were secondary to profound hypoglycemia and Complicated by UTI Her initial CAT scan was negative for any stroke She will have an MRI of the brain-Acute punctate lacunar infarcts seen within the ruddy and left caudate head. Dysarthria resolved (3) Hypoglycemia: She has diabetes on insulin and oral hypoglycemic agent Her blood sugar in the emergency room was noted to be 49 Her symptoms of dysarthria and confusion likely secondary to low blood sugar She received appropriate treatment for that Her insulin doses decreased and her blood sugar will be monitored Oral hypoglycemic agents on hold now Blood sugar remains stable (4) UTI (urinary tract infection): She did have frequency and dysuria as per the daughter Her UA is suggestive of UTI She has increased white cell count She was started with intravenous ceftriaxone and culture was sent Pending urine culture (5) Diabetes mellitus, type II: We will continue her regular insulin with reduced dose Oral hypoglycemic agent will be on hold SSI (6) PMR (polymyalgia rheumatica): (7) Hypothyroidism: Continue replacement (8) Compression fracture of lumbar vertebra: We will continue physical therapy Pain medications as prescribed Will need to continue physical therapy (9) HTN (hypertension): BP is controlled Continue current medications DVT prophylaxis With subcu Lovenox PT and OT evaluation Subjective She is an 78 years old female with significant past medical history of hypertension, hyperlipidemia, diabetes type 2, hypothyroidism, chronic kidney disease and ambulatory dysfunction with fall and crush fracture of the lumbar vertebrae was admitted with strokelike symptoms on 10/27/18. 10/28 The patient was seen and examined in telemetry unit She does not have any strokelike symptoms She has been feeling a lot better Her only complaint is back pain Physical Exam 2 Vital Signs (Past 24 Hours): Last Vital Signs Temp 36.8 C 10/28/18 15:08 Pulse 71 10/28/18 15:08 Resp 18 10/28/18 15:08 BP 123/72 10/28/18 15:08 Pulse Ox 93 10/28/18 15:08 Constitutional: WD/WN, vitals as above no acute distress Eyes: PERRL, conjunctivae normal, anicteric sclerae ENMT: external ear and nose normal, oropharynx normal Respiratory: normal respiratory effort; no respiratory distress Auscultation: + diminished lung sounds (Without any wheezing and/or crackles) Cardiovascular: Rate/Rhythm: regular rate and regular rhythm Heart Sounds: normal S1 and normal S2 Gastrointestinal (Abdomen): Inspection/Auscultation: abdomen normal to inspection and normal bowel sounds Percussion/Palpation: abdomen soft Neurologic: normal touch/pain/proprioception, moves all extremities and awake ; + abnormal sensation to monofilament and no focal motor deficits Results & Data Laboratory Results Short CBC 10/28/18 Range/Units 06:04 WBC 12.75 H (4.8-10.8) K/uL Hgb 12.4 (12.0-16.0) g/dL Hct 36.7 L (37-47) % Plt Count 277 (130-400) K/uL BMP 10/28/18 06:04 Sodium 136 Potassium 4.2 Chloride 101 Carbon Dioxide 26 BUN 42 H Creatinine 1.53 H Glucose 150 H Calcium 9.0 Medications Administered Current Inpatient Medications Acetaminophen (Tylenol) 500 mg PO Q4H PRN PRN Reason: Pain Stop: 11/26/18 18:01 Allopurinol (Zyloprim) 100 mg PO Q12 ROBERT Stop: 11/26/18 20:59 Last Admin: 10/28/18 08:59 Dose: 100 mg Amlodipine Besylate (Norvasc) 2.5 mg PO DAILY ROBERT Stop: 11/27/18 08:59 Last Admin: 10/28/18 08:59 Dose: 2.5 mg Aspirin (Ecotrin) 325 mg PO QAM ROBERT Stop: 11/26/18 19:59 Last Admin: 10/28/18 08:59 Dose: 325 mg Atorvastatin Calcium (Lipitor) 40 mg PO HS ROBERT Stop: 11/26/18 20:59 Last Admin: 10/27/18 21:00 Dose: 40 mg Bisacodyl (Dulcolax) 10 mg WI DAILY PRN PRN Reason: Constipation Stop: 11/26/18 18:01 Clopidogrel Bisulfate (Plavix) 75 mg PO QAM ROBERT Stop: 11/27/18 08:59 Last Admin: 10/28/18 09:00 Dose: 75 mg Dextrose (Dextrose 50%) 25 - 50 ml IV UD PRN; Protocol PRN Reason: Hypoglycemia Protocol Stop: 11/26/18 18:04 Docusate Sodium (Colace) 100 mg PO BID [facility] Stop: 11/26/18 20:59 Last Admin: 10/28/18 08:59 Dose: 100 mg Enoxaparin Sodium (Lovenox) 40 mg SQ DAILY@19 ROBERT Stop: 11/26/18 18:59 Last Admin: 10/27/18 18:34 Dose: 40 mg Escitalopram Oxalate (Lexapro) 10 mg PO HS [facility] Stop: 11/26/18 20:59 Last Admin: 10/27/18 21:00 Dose: 10 mg Glucagon (Glucagen) 1 mg IM UD PRN; Protocol PRN Reason: Hypoglycemia Protocol Stop: 11/26/18 18:04 Glucose (Glucose 40%) 15 - 30 gm PO UD PRN; Protocol PRN Reason: Hypoglycemia Protocol Stop: 11/26/18 18:04 Glucose (Dex4 Glucose) 4 - 8 tabs PO UD PRN; Protocol PRN Reason: Hypoglycemia Protocol Stop: 11/26/18 18:04 Ceftriaxone Sodium 1,000 mg/ (Dextrose) 50 mls @ 100 mls/hr IV Q24H [facility]; Protocol Stop: 11/02/18 16:59 Insulin Aspart (Novolog Flexpen) 0 units SQ ACHS [facility] Stop: 11/26/18 18:29 Last Admin: 10/28/18 13:24 Dose: Not Given Insulin Glargine (Lantus Solostar Pen) 20 units SQ HS [facility] Stop: 11/26/18 20:59 Last Admin: 10/27/18 21:03 Dose: 20 units Levothyroxine Sodium (Synthroid) 100 mcg PO DAILYBB [facility] Stop: 11/27/18 06:29 Last Admin: 10/28/18 05:58 Dose: 100 mcg Magnesium Hydroxide (Milk Of Magnesia) 30 ml PO DAILY PRN PRN Reason: CONSTIPATION Stop: 11/26/18 18:07 Metoprolol Succinate (Toprol Xl) 50 mg PO HS [facility] Stop: 11/26/18 20:59 Last Admin: 10/27/18 21:00 Dose: 50 mg Miscellaneous (Order Awaiting Action) 1 ea N/A QS [facility] Stop: 11/27/18 00:00 Last Admin: 10/27/18 22:40 Dose: Not Given Miscellaneous (Carbohydrates For Hypoglycemia) 15 - 30 gm PO UD PRN PRN Reason: Hypoglycemia Treatment Stop: 11/26/18 18:04 Oxycodone HCl (Roxicodone Immediate Rel) 5 mg PO QID ROBERT Stop: 11/10/18 20:59 Last Admin: 10/28/18 13:24 Dose: 5 mg Prednisone (Prednisone) 5 mg PO HS ROBERT Stop: 11/26/18 20:59 Last Admin: 10/27/18 20:59 Dose: 5 mg Sennosides (Senokot) 8.6 mg PO QAM PRN PRN Reason: Constipation Stop: 11/26/18 18:01 Last Admin: 10/28/18 08:59 Dose: 8.6 mg Zolpidem Tartrate (Ambien) 5 mg PO HS PRN PRN Reason: Insomnia Stop: 11/26/18 18:01 _ (1) UTI (urinary tract infection) Encounter type: Hematuria presence: with hematuria Indwelling urinary catheter type: Urinary tract infection type: site unspecified Qualified Code( s): N39.0 - Urinary tract infection, site not specified; R31.9 - Hematuria, unspecified (2) Compression fracture of lumbar vertebra Encounter type: initial encounter Fracture healing: Fracture type: closed Lumbar vertebra fracture level: L4 Qualified Code(s): S32.040A - Wedge compression fracture of fourth lumbar vertebra, initial encounter for closed fracture
[2018-10-28] MEDS ORDERED: cefTRIAXone SODIUM 1,000 MG in DEXTROSE 5% 50 ML IV SCH (17:00)
[2018-10-28] MEDS: ENOXAPARIN INJ 40 MG/0.4 ML SYR SQ SCH (20:00)
[2018-10-28] MEDS: ATORVASTATIN 40 MG TAB PO SCH (20:04)
[2018-10-28] MEDS: ESCITALOPRAM OXALATE 10 MG TAB PO SCH (20:05)
[2018-10-28] MEDS: predniSONE 5 MG TAB PO SCH (20:05)
[2018-10-28] MEDS: METOPROLOL SUCC 50MG EXT REL TAB PO SCH (20:06)
[2018-10-28] MEDS: INSULIN GLARGINE SOLOSTAR 100 UNITS/ML 3 ML PEN SQ SCH (20:22)
[2018-10-29] MEDS: LEVOTHYROXINE SODIUM 100 MCG TABLET PO SCH (06:18)
--- NOTE | 2018-10-29 07:05 | Ultrasound Report ---
BILATERAL CAROTID DOPPLER STUDY HISTORY: Left-sided stroke. acute CVA COMPARISON: None. TECHNIQUE: Real-time, grayscale, and color Doppler sonography of the carotid arteries was performed. Imaging reviewed in the transverse and longitudinal planes. All measurements were calculated based on NASCET criteria. FINDINGS: Antegrade flow is seen in the bilateral vertebral arteries. The brachial pressures were unable to be obtained. Mild calcified plaque within the bilateral carotid bifurcations. The peak systolic velocity within the right ICA is 51 cm/s. The right systolic ratio is 0.6. The peak systolic velocity within the left ICA is 66 cm/s. The left systolic ratio is 0.8. IMPRESSION: No hemodynamically significant stenosis seen within the carotid arteries. Electronically signed by: Raúl Rm M.D. 10/29/2018 7:03 AM
[2018-10-29 07:53] LABS: Basophils # (auto) 0.02 K/uL (0-0.2); Basophils % (auto) 0.2 %; Eosinophils # (auto) 0.08 K/uL (0-0.5); Eosinophils % (auto) 0.8 %; Hematocrit (blood only) 35.3 % (37-47); Hemoglobin 11.6 g/dL (12.0-16.0); Immature Granulocytes # (auto) 0.09 K/uL (0.00-0.02); Immature Granulocytes % (auto) 0.9 %; Lymphocytes # (auto) 2.22 K/uL (1.2-3.4); Lymphocytes % (auto) 21.2 %; Mean Corpuscular Hgb Conc 32.9 g/dL (32-36); Mean Corpuscular Volume 100.9 fL (80-100); Mean Platelet Volume 10.1 fL (7.4-10.4); Monocytes # (auto) 0.72 K/uL (0.11-0.59); Monocytes % (auto) 6.9 %; Neutrophils # (auto) 7.33 K/uL (1.4-6.5); Platelet Count 308 K/uL (130-400); White Blood Count 10.46 K/uL (4.8-10.8)
[2018-10-29 08:18] LABS: BUN Creatinine Ratio 26.4 (10-20); Calcium 8.9 mg/dl (8.5-10.1); Creatinine Clr Calc Pharmacy 27.3 ml/min; Est GFR (African American) 36.6; Est GFR (Non-African American) 31.5; Potassium 4.3 mmol/L (3.5-5.1)
[2018-10-29] MEDS: DOCUSATE SODIUM 100 MG CAP PO SCH ×2 (08:52→21:10)
[2018-10-29] MEDS: ALLOPURINOL 100 MG TAB PO SCH ×2 (08:53→21:24)
[2018-10-29] MEDS: AMLODIPINE BESYLATE 5 MG TAB PO SCH (08:53)
[2018-10-29] MEDS: ASPIRIN 325 MG ECTAB PO SCH (08:53)
[2018-10-29] MEDS: CLOPIDOGREL BISULFATE 75 MG TAB PO SCH (08:53)
[2018-10-29] MEDS: INSULIN ASPART 100 UNITS/ML 3 ML PEN SQ SCH ×4 (08:54→21:13)
[2018-10-29] MEDS: OXYCODONE HCL IR 5 MG TAB (IMMEDIATE RELEASE) PO SCH ×4 (08:58→21:09)
--- NOTE | 2018-10-29 14:20 | Hospitalist Progress Note ---
Date of Service October 29, 2018 Assessment & Plan (1) Stroke: Admitted with the strokelike symptoms which resolved MRI;;Acute punctate lacunar infarcts seen within the ruddy and left caudate head. No residual effect of his stroke Denies any neurological symptoms today Appreciate neurologist input and recommendation Carotid ultrasound did not show any significant stenosis and echo is pending Patient remains stable without any more neurological symptoms (2) Dysarthria: Patient was sent in from [facility] with dysarthria and possible right facial droop Stroke alert was called She did not have any stroke and/or TIA,and her neurological symptoms resolved Her symptoms were secondary to profound hypoglycemia and Complicated by UTI Her initial CAT scan was negative for any stroke She will have an MRI of the brain-Acute punctate lacunar infarcts seen within the ruddy and left caudate head. Dysarthria resolved (3) Hypoglycemia: She has diabetes on insulin and oral hypoglycemic agent Her blood sugar in the emergency room was noted to be 49 Her symptoms of dysarthria and confusion likely secondary to low blood sugar She received appropriate treatment for that Her insulin doses decreased and her blood sugar will be monitored Oral hypoglycemic agents on hold now Blood sugar remains stable Insulin doses have been adjusted (4) UTI (urinary tract infection): She did have frequency and dysuria as per the daughter Her UA is suggestive of UTI She has increased white cell count She was started with intravenous ceftriaxone and culture was sent Urine cultures grew staph aureus and Enterococcus faecalis Will start oral Augmentin and continue for 7-10 days in total (5) Diabetes mellitus, type II: We will continue her regular insulin with reduced dose Oral hypoglycemic agent will be on hold SSI (6) PMR (polymyalgia rheumatica): (7) Hypothyroidism: Continue replacement (8) Compression fracture of lumbar vertebra: We will continue physical therapy Pain medications as prescribed Will need to continue physical therapy Has been complaining of more pain at the back Has been having difficulty to continue physical therapy May not be a candidate for [facility] Will go by the recommendation from the therapist (9) HTN (hypertension): BP is controlled Continue current medications DVT prophylaxis With subcu Lovenox PT and OT evaluation Subjective She is an 78 years old female with significant past medical history of hypertension, hyperlipidemia, diabetes type 2, hypothyroidism, chronic kidney disease and ambulatory dysfunction with fall and crush fracture of the lumbar vertebrae was admitted with strokelike symptoms on 10/27/18. 10/28 The patient was seen and examined in telemetry unit She does not have any strokelike symptoms She has been feeling a lot better Her only complaint is back pain 10/29 Patient was seen and examined in telemetry unit She has been complaining of a lot of back pain Denies any neurological symptoms Physical Exam 2 Vital Signs (Past 24 Hours): Last Vital Signs Temp 36.6 C 10/29/18 11:45 Pulse 70 10/29/18 11:45 Resp 16 10/29/18 11:45 BP 131/73 10/29/18 11:45 Pulse Ox 96 10/29/18 11:45 Constitutional: WD/WN, vitals as above no acute distress Eyes: PERRL, conjunctivae normal, anicteric sclerae ENMT: external ear and nose normal, oropharynx normal Respiratory: normal respiratory effort; no respiratory distress Auscultation: + diminished lung sounds (Without any wheezing and/or crackles) Cardiovascular: Rate/Rhythm: regular rate and regular rhythm Heart Sounds: normal S1 and normal S2 Gastrointestinal (Abdomen): Inspection/Auscultation: abdomen normal to inspection and normal bowel sounds Percussion/Palpation: abdomen soft Neurologic: normal touch/pain/proprioception, moves all extremities and awake ; + abnormal sensation to monofilament and no focal motor deficits Results & Data Laboratory Results Short CBC 10/29/18 Range/Units 07:00 WBC 10.46 (4.8-10.8) K/uL Hgb 11.6 L (12.0-16.0) g/dL Hct 35.3 L (37-47) % Plt Count 308 (130-400) K/uL BMP 10/29/18 07:00 Sodium 137 Potassium 4.3 Chloride 102 Carbon Dioxide 28 BUN 41 H Creatinine 1.54 H Glucose 167 H Calcium 8.9 Medications Administered Current Inpatient Medications Acetaminophen (Tylenol) 500 mg PO Q4H PRN PRN Reason: Pain Stop: 11/26/18 18:01 Allopurinol (Zyloprim) 100 mg PO Q12 [facility] Stop: 11/26/18 20:59 Last Admin: 10/29/18 08:53 Dose: 100 mg Amlodipine Besylate (Norvasc) 2.5 mg PO DAILY [facility] Stop: 11/27/18 08:59 Last Admin: 10/29/18 08:53 Dose: 2.5 mg Aspirin (Ecotrin) 325 mg PO QAM [facility] Stop: 11/26/18 19:59 Last Admin: 10/29/18 08:53 Dose: 325 mg Atorvastatin Calcium (Lipitor) 40 mg PO HS [facility] Stop: 11/26/18 20:59 Last Admin: 10/28/18 20:04 Dose: 40 mg Bisacodyl (Dulcolax) 10 mg [place] DAILY PRN PRN Reason: Constipation Stop: 11/26/18 18:01 Clopidogrel Bisulfate (Plavix) 75 mg PO QAM [facility] Stop: 11/27/18 08:59 Last Admin: 10/29/18 08:53 Dose: 75 mg Dextrose (Dextrose 50%) 25 - 50 ml IV UD PRN; Protocol PRN Reason: Hypoglycemia Protocol Stop: 11/26/18 18:04 Docusate Sodium (Colace) 100 mg PO BID [facility] Stop: 11/26/18 20:59 Last Admin: 10/29/18 08:52 Dose: 100 mg Enoxaparin Sodium (Lovenox) 40 mg SQ DAILY@19 [facility] Stop: 11/26/18 18:59 Last Admin: 10/28/18 20:00 Dose: 40 mg Escitalopram Oxalate (Lexapro) 10 mg PO HS [facility] Stop: 11/26/18 20:59 Last Admin: 10/28/18 20:05 Dose: 10 mg Glucagon (Glucagen) 1 mg IM UD PRN; Protocol PRN Reason: Hypoglycemia Protocol Stop: 11/26/18 18:04 Glucose (Glucose 40%) 15 - 30 gm PO UD PRN; Protocol PRN Reason: Hypoglycemia Protocol Stop: 11/26/18 18:04 Glucose (Dex4 Glucose) 4 - 8 tabs PO UD PRN; Protocol PRN Reason: Hypoglycemia Protocol Stop: 11/26/18 18:04 Ceftriaxone Sodium 1,000 mg/ (Dextrose) 50 mls @ 100 mls/hr IV Q24H [facility]; Protocol Stop: 11/02/18 16:59 Last Infusion: 10/28/18 18:59 Dose: 100 mls/hr Insulin Aspart (Novolog Flexpen) 0 units SQ ACHS [facility] Stop: 11/26/18 18:29 Last Admin: 10/29/18 13:05 Dose: Not Given Insulin Glargine (Lantus Solostar Pen) 20 units SQ HS [facility] Stop: 11/26/18 20:59 Last Admin: 10/28/18 20:22 Dose: 20 units Levothyroxine Sodium (Synthroid) 100 mcg PO DAILYBB [facility] Stop: 11/27/18 06:29 Last Admin: 10/29/18 06:18 Dose: 100 mcg Magnesium Hydroxide (Milk Of Magnesia) 30 ml PO DAILY PRN PRN Reason: CONSTIPATION Stop: 11/26/18 18:07 Metoprolol Succinate (Toprol Xl) 50 mg PO HS [facility] Stop: 11/26/18 20:59 Last Admin: 10/28/18 20:06 Dose: 50 mg Miscellaneous (Order Awaiting Action) 1 ea N/A QS [facility] Stop: 11/27/18 00:00 Last Admin: 10/29/18 00:24 Dose: Not Given Miscellaneous (Carbohydrates For Hypoglycemia) 15 - 30 gm PO UD PRN PRN Reason: Hypoglycemia Treatment Stop: 11/26/18 18:04 Oxycodone HCl (Roxicodone Immediate Rel) 5 mg PO QID [facility] Stop: 11/10/18 20:59 Last Admin: 10/29/18 13:48 Dose: 5 mg Prednisone (Prednisone) 5 mg PO HS [facility] Stop: 11/26/18 20:59 Last Admin: 10/28/18 20:05 Dose: 5 mg Sennosides (Senokot) 8.6 mg PO QAM PRN PRN Reason: Constipation Stop: 11/26/18 18:01 Last Admin: 10/28/18 08:59 Dose: 8.6 mg Zolpidem Tartrate (Ambien) 5 mg PO HS PRN PRN Reason: Insomnia Stop: 11/26/18 18:01 _ (1) UTI (urinary tract infection) Encounter type: Hematuria presence: with hematuria Indwelling urinary catheter type: Urinary tract infection type: site unspecified Qualified Code( s): N39.0 - Urinary tract infection, site not specified; R31.9 - Hematuria, unspecified (2) Compression fracture of lumbar vertebra Encounter type: initial encounter Fracture healing: Fracture type: closed Lumbar vertebra fracture level: L4 Qualified Code(s): S32.040A - Wedge compression fracture of fourth lumbar vertebra, initial encounter for closed fracture
--- NOTE | 2018-10-29 14:39 | Neurology Progress Note ---
Date of Service October 29, 2018 Assessment & Plan (1) Expressive aphasia: 1. MRI - acute lacunar infarcts, small ruddy infarct 2. TTE- pending read 3. carotid doppler- no significant stenosis or plaques 4. was not on aspirin prior aspirin 81 mg started 5. Lipid profile -lipids rechecked in good range 6. continue atorvastatin 40 mg hs 7. optimize DM, HLD, HTN- LDL < 70 as outpatient - triglicerides 611, unable to obtain LDL - 07/24/2018- lipids rechecked in good range 8. PT/OT speech for discharge needs 9. will need outpatient potline monitor for evaluation of possible irregular heart r/r follow up 8 weeks after discharge from [facility] Uyen Paul PAC neurology schedule. Supervising Physician Co-Signing Physician Notes I have seen and discussed above patient with Dr Mason Hassan. Agree with Uyen Paul PA-C as noted below. Patient evaluated at bedside this afternoon. Daughter at bedside. Patient reports doing well. Denies any new complaints or concerns. Carotid US completed. No high grade stenosis. TTE completed - official read is pending. - Recommend to continue ASA 81 mg daily and Liptor 40 mg daily for secondary stroke prevention - Recommend cardiac event monitor on discharge for further evaluation of PAF - Continue telemetry while inpatient - PT/OT - Recommending acute rehab - Will defer to primary for Abx treatment course for UTI Discussed plan with patient and daughter. Agreed to plan of care and had no further questions. Patient can follow up in our Neurology clinic in 8-weeks. Please call with any further questions or concerns. Wilbert Serrano is an 78 year old female with PMH DM2 on insulin, ambulatory dysfunction with recent fall and lumbar compression fracture, peripheral neuropathy, CKD III , polymyalgia rheumatica, HTN, HLD, GERD and hypothyroidism was admitted from [facility] with acute confusion, dysarthria with questionable right facial droop and noted to have a blood sugar of 49 with possible UTI. She was brought to the ED for evaluation. Once she was seen in the ED she was back to baseline and her dysarthria is almost gone. She was evaluated by telemetry neurologist and did not have any evidence of stroke. She was recently discharged from the hospital following fall and compression fracture of lumbar vertebrae and was at [facility] for further rehab prior to returning home. Today she states she feels she is close to her baseline but still having minor word finding issues. They did the TTE this am. denies CP, SOB, abdominal pain , weakness, numbness tingling, N, V, bowel or bladder issues. Physical Exam 2 Vital Signs (Past 24 Hours): Last Vital Signs Temp 36.6 C 10/29/18 11:45 Pulse 70 10/29/18 11:45 Resp 16 10/29/18 11:45 BP 131/73 10/29/18 11:45 Pulse Ox 96 10/29/18 11:45 Gen: alert NAD lungs course breath sounds CV RRR strength bilateral UE 5/5 no pronator drift no bi pass with finger to nose oriented to self, [place], October. Results & Data Laboratory Results Abnormal lab results 10/28/18 10/28/18 10/29/18 Range/Units 15:55 19:50 07:00 RBC 3.50 L (4.2-5.4) M/uL Hgb 11.6 L (12.0-16.0) g/dL Hct 35.3 L (37-47) % MCV 100.9 H (80-100) fL RDW Std Deviation 51.0 H (36.4-46.3) fL Immature Gran # (Auto) 0.09 H (0.00-0.02) K/uL Neut # (Auto) 7.33 H (1.4-6.5) K/uL [place] # (Auto) 0.72 H (0.11-0.59) K/uL BUN (7-18) mg/dl Creatinine (0.6-1.2) mg/dl BUN/Creatinine Ratio (10-20) Glucose (70-99) mg/dl POC Glucose 66 L* 140 H (70-99) Triglycerides (0-150) mg/dl 10/29/18 10/29/18 Range/Units 07:00 07:26 RBC (4.2-5.4) M/uL Hgb (12.0-16.0) g/dL Hct (37-47) % MCV (80-100) fL RDW Std Deviation (36.4-46.3) fL Immature Gran # (Auto) (0.00-0.02) K/uL Neut # (Auto) (1.4-6.5) K/uL [place] # (Auto) (0.11-0.59) K/uL BUN 41 H (7-18) mg/dl Creatinine 1.54 H (0.6-1.2) mg/dl BUN/Creatinine Ratio 26.4 H (10-20) Glucose 167 H (70-99) mg/dl POC Glucose 184 H (70-99) Triglycerides 171 H (0-150) mg/dl Diagnostic Findings carotid doppler-No hemodynamically significant stenosis seen within the carotid arteries.
[2018-10-29] MEDS: AMOXICILLIN/CLAVULANATE 875 MG TAB PO SCH (18:00)
[2018-10-29] MEDS: ENOXAPARIN INJ 40 MG/0.4 ML SYR SQ SCH (19:46)
[2018-10-29] MEDS: ESCITALOPRAM OXALATE 10 MG TAB PO SCH (21:11)
[2018-10-29] MEDS: INSULIN GLARGINE SOLOSTAR 100 UNITS/ML 3 ML PEN SQ SCH (21:11)
[2018-10-29] MEDS: predniSONE 5 MG TAB PO SCH (21:24)
[2018-10-29] MEDS: METOPROLOL SUCC 50MG EXT REL TAB PO SCH (21:24)
[2018-10-29] MEDS: ATORVASTATIN 40 MG TAB PO SCH (21:24)
[2018-10-30] MEDS: LEVOTHYROXINE SODIUM 100 MCG TABLET PO SCH (06:05)
[2018-10-30] MEDS: INSULIN ASPART 100 UNITS/ML 3 ML PEN SQ SCH ×4 (08:33→21:33)
[2018-10-30] MEDS: ALLOPURINOL 100 MG TAB PO SCH ×2 (08:33→21:28)
[2018-10-30] MEDS: OXYCODONE HCL IR 5 MG TAB (IMMEDIATE RELEASE) PO SCH ×4 (08:33→21:29)
[2018-10-30] MEDS: AMOXICILLIN/CLAVULANATE 875 MG TAB PO SCH (08:33)
[2018-10-30] MEDS: ASPIRIN 325 MG ECTAB PO SCH (09:34)
[2018-10-30] MEDS: CLOPIDOGREL BISULFATE 75 MG TAB PO SCH (09:34)
[2018-10-30] MEDS: DOCUSATE SODIUM 100 MG CAP PO SCH ×2 (09:34→21:54)
[2018-10-30] MEDS: AMLODIPINE BESYLATE 5 MG TAB PO SCH (09:34)
--- NOTE | 2018-10-30 10:14 | Hospitalist Progress Note ---
Date of Service October 30, 2018 Assessment & Plan (1) Stroke: Admitted with the strokelike symptoms which resolved MRI;;Acute punctate lacunar infarcts seen within the ruddy and left caudate head. No residual effect of his stroke Denies any neurological symptoms today Appreciate neurologist input and recommendation Carotid ultrasound did not show any significant stenosis and echo is pending Patient remains stable without any more neurological symptoms Echo did not show any significant source of embolism Likely to need outpatient cardiac monitoring as advised by neurologist Aspirin has been changed to 81 mg daily (2) Dysarthria: Patient was sent in from [facility] with dysarthria and possible right facial droop Stroke alert was called She did not have any stroke and/or TIA,and her neurological symptoms resolved Her symptoms were secondary to profound hypoglycemia and Complicated by UTI Her initial CAT scan was negative for any stroke She will have an MRI of the brain-Acute punctate lacunar infarcts seen within the ruddy and left caudate head. Dysarthria resolved No other residual neurological symptoms noted (3) Hypoglycemia: She has diabetes on insulin and oral hypoglycemic agent Her blood sugar in the emergency room was noted to be 49 Her symptoms of dysarthria and confusion likely secondary to low blood sugar She received appropriate treatment for that Her insulin doses decreased and her blood sugar will be monitored Oral hypoglycemic agents on hold now Blood sugar remains stable Insulin doses have been adjusted Like to be discharged with this reducing dose of Lantus (4) UTI (urinary tract infection): She did have frequency and dysuria as per the daughter Her UA is suggestive of UTI-likely catheter induced UTI She has increased white cell count She was started with intravenous ceftriaxone and culture was sent Urine cultures grew staph aureus and Enterococcus faecalis Will start oral Augmentin and continue for 7-10 days in total Denies any more neurological symptoms (5) Diabetes mellitus, type II: We will continue her regular insulin with reduced dose Oral hypoglycemic agent will be on hold SSI Her insulin doses have been decreased (6) PMR (polymyalgia rheumatica): (7) Hypothyroidism: Continue replacement (8) Compression fracture of lumbar vertebra: We will continue physical therapy Pain medications as prescribed Will need to continue physical therapy Has been complaining of more pain at the back Has been having difficulty to continue physical therapy May not be a candidate for [facility] Will go by the recommendation from the therapist Awaiting for placement may not be a good candidate for [facility]- (9) HTN (hypertension): BP is controlled Continue current medications DVT prophylaxis With subcu Lovenox PT and OT evaluation Waiting for placement Subjective She is an 78 years old female with significant past medical history of hypertension, hyperlipidemia, diabetes type 2, hypothyroidism, chronic kidney disease and ambulatory dysfunction with fall and crush fracture of the lumbar vertebrae was admitted with strokelike symptoms on 10/27/18. 10/28 The patient was seen and examined in telemetry unit She does not have any strokelike symptoms She has been feeling a lot better Her only complaint is back pain 10/29 Patient was seen and examined in telemetry unit She has been complaining of a lot of back pain Denies any neurological symptoms 10/30 Patient was seen and examined in medical floor She complains to have some back pain and hip pain no other symptoms He has been very difficult for her to participate with physical therapy She denies any neurological symptoms Physical Exam 2 Vital Signs (Past 24 Hours): Last Vital Signs Temp 36.4 C L 10/30/18 07:22 Pulse 67 10/30/18 07:22 Resp 18 10/30/18 07:22 BP 150/87 H 10/30/18 07:22 Pulse Ox 98 10/30/18 07:22 Physical Exam: Lying in bed comfortably Constitutional: WD/WN, vitals as above no acute distress Eyes: PERRL, conjunctivae normal, anicteric sclerae ENMT: external ear and nose normal, oropharynx normal Respiratory: normal respiratory effort; no respiratory distress Auscultation: + diminished lung sounds (Without any wheezing and/or crackles) Cardiovascular: Rate/Rhythm: regular rate and regular rhythm Heart Sounds: normal S1 and normal S2 Gastrointestinal (Abdomen): Inspection/Auscultation: abdomen normal to inspection and normal bowel sounds Percussion/Palpation: abdomen soft Neurologic: normal touch/pain/proprioception, moves all extremities and awake ; + abnormal sensation to monofilament and no focal motor deficits Results & Data Medications Administered Current Inpatient Medications Acetaminophen (Tylenol) 500 mg PO Q4H PRN PRN Reason: Pain Stop: 11/26/18 18:01 Allopurinol (Zyloprim) 100 mg PO Q12 [facility] Stop: 11/26/18 20:59 Last Admin: 10/30/18 08:33 Dose: 100 mg Amlodipine Besylate (Norvasc) 2.5 mg PO DAILY [facility] Stop: 11/27/18 08:59 Last Admin: 10/30/18 09:34 Dose: 2.5 mg Amoxicillin/Clavulanate Potassium (Augmentin 875mg) 1 tab PO BIDM [facility]; Protocol Stop: 11/08/18 16:59 Last Admin: 10/30/18 08:33 Dose: 1 tab Aspir[facility] ([facility]rin Ectab) [facility] [place]: 11/30/18 08:59 Atorvastatin Calcium (Lipitor) 40 mg PO [facility] Stop: 11/26/18 20:59 Last Admin: 10/29/18 21:24 Dose: 40 mg Bisacodyl (Dulcolax) 10 mg [place] DAILY PRN PRN Reason: Constipation Stop: 11/26/18 18:01 Clopidogrel Bisulfate (Plavix) 75 mg PO [facility] Stop: 11/27/18 08:59 Last Admin: 10/30/18 09:34 Dose: 75 mg Dextrose (Dextrose 50%) 25 - 50 ml IV UD PRN; Protocol PRN Reason: Hypoglycemia Protocol Stop: 11/26/18 18:04 Docusate Sodium (Colace) 100 mg PO BID [facility] Stop: 11/26/18 20:59 Last Admin: 10/30/18 09:34 Dose: 100 mg Enoxaparin Sodium (Lovenox) 30 mg SQ DAILY@19 [facility] Stop: 11/29/18 18:59 Escitalopram Oxalate (Lexapro) 10 mg PO [facility] Stop: 11/26/18 20:59 Last Admin: 10/29/18 21:11 Dose: 10 mg Glucagon (Glucagen) 1 mg IM UD PRN; Protocol PRN Reason: Hypoglycemia Protocol Stop: 11/26/18 18:04 Glucose (Glucose 40%) 15 - 30 gm PO UD PRN; Protocol PRN Reason: Hypoglycemia Protocol Stop: 11/26/18 18:04 Glucose (Dex4 Glucose) 4 - 8 tabs PO UD PRN; Protocol PRN Reason: Hypoglycemia Protocol Stop: 11/26/18 18:04 Insulin Aspart (Novolog Flexpen) 0 units SQ ACHS [facility] Stop: 11/26/18 18:29 Last Admin: 10/30/18 08:33 Dose: 6 units Insulin Glargine (Lantus Solostar Pen) 20 units SQ [facility] Stop: 11/26/18 20:59 Last Admin: 10/29/18 21:11 Dose: 20 units Levothyroxine Sodium (Synthroid) 100 mcg PO DAILYBB [facility] Stop: 11/27/18 06:29 Last Admin: 10/30/18 06:05 Dose: 100 mcg Magnesium Hydroxide (Milk Of Magnesia) 30 ml PO DAILY PRN PRN Reason: CONSTIPATION Stop: 11/26/18 18:07 Metoprolol Succinate (Toprol Xl) 50 mg PO [facility] Stop: 11/26/18 20:59 Last Admin: 10/29/18 21:24 Dose: 50 mg Miscellaneous (Order Awaiting Action) 1 ea N/A QS [facility] Stop: 11/27/18 00:00 Last Admin: 10/30/18 08:23 Dose: Not Given Miscellaneous (Carbohydrates For Hypoglycemia) 15 - 30 gm PO UD PRN PRN Reason: Hypoglycemia Treatment Stop: 11/26/18 18:04 Oxycodone HCl (Roxicodone Immediate Rel) 5 mg PO QID [facility] Stop: 11/10/18 20:59 Last Admin: 10/30/18 08:33 Dose: 5 mg Prednisone (Prednisone) 5 mg PO [facility] Stop: 11/26/18 20:59 Last Admin: 10/29/18 21:24 Dose: 5 mg Sennosides (Senokot) 8.6 mg PO QAM PRN PRN Reason: Constipation Stop: 11/26/18 18:01 Last Admin: 10/28/18 08:59 Dose: 8.6 mg Zolpidem Tartrate (Ambien) 5 mg PO HS PRN PRN Reason: Insomnia Stop: 11/26/18 18:01 _ (1) UTI (urinary tract infection) Encounter type: Hematuria presence: with hematuria Indwelling urinary catheter type: Urinary tract infection type: site unspecified Qualified Code( s): N39.0 - Urinary tract infection, site not specified; R31.9 - Hematuria, unspecified (2) Compression fracture of lumbar vertebra Encounter type: initial encounter Fracture healing: Fracture type: closed Lumbar vertebra fracture level: L4 Qualified Code(s): S32.040A - Wedge compression fracture of fourth lumbar vertebra, initial encounter for closed fracture
[2018-10-30] MEDS: AMOXICILLIN/CLAVULANATE 500 MG TAB PO SCH (17:33)
[2018-10-30] MEDS ORDERED: ENOXAPARIN INJ 30 MG/0.3 ML SYR SQ SCH (19:00)
[2018-10-30] MEDS: predniSONE 5 MG TAB PO SCH (21:29)
[2018-10-30] MEDS: METOPROLOL SUCC 50MG EXT REL TAB PO SCH (21:29)
[2018-10-30] MEDS: INSULIN GLARGINE SOLOSTAR 100 UNITS/ML 3 ML PEN SQ SCH (21:33)
[2018-10-30] MEDS: ATORVASTATIN 40 MG TAB PO SCH (21:54)
[2018-10-30] MEDS: ESCITALOPRAM OXALATE 10 MG TAB PO SCH (21:54)
[2018-10-31] MEDS: LEVOTHYROXINE SODIUM 100 MCG TABLET PO SCH (05:51)
[2018-10-31] MEDS: ALLOPURINOL 100 MG TAB PO SCH (08:01)
[2018-10-31] MEDS: OXYCODONE HCL IR 5 MG TAB (IMMEDIATE RELEASE) PO SCH ×2 (08:01→12:27)
[2018-10-31] MEDS: AMLODIPINE BESYLATE 5 MG TAB PO SCH (08:01)
[2018-10-31] MEDS: CLOPIDOGREL BISULFATE 75 MG TAB PO SCH (08:01)
[2018-10-31] MEDS: AMOXICILLIN/CLAVULANATE 500 MG TAB PO SCH (08:02)
[2018-10-31] MEDS: DOCUSATE SODIUM 100 MG CAP PO SCH (08:03)
[2018-10-31] MEDS: INSULIN ASPART 100 UNITS/ML 3 ML PEN SQ SCH ×2 (08:43→12:27)
[2018-10-31] MEDS ORDERED: ASPIRIN 81 MG ECTAB PO SCH (09:00)
--- NOTE | 2018-10-31 12:07 | Hospitalist Progress Note ---
Date of Service October 31, 2018 Assessment & Plan (1) Stroke: Patient is admitted with stroke like symptoms which resolved MRI Brain:Acute punctate lacunar infarcts seen within the ruddy and left caudate head. Carotid Doppler:No hemodynamically significant stenosis seen within the carotid arteries. ECHO: No ASD No obvious residual weakness from stroke Speech back to baseline Appreciate neurologist input Likely to need outpatient cardiac monitoring as advised by neurologist Started on Aspirin 81 mg daily Continue Lipitor (2) Dysarthria: Secondary to Acute CVA Dysarthria resolved Management as above (3) Hypoglycemia: Patient is on Insulin therapy and oral hypoglycemic agent at home Presented with Hypoglycemia Insulin dose decreased Oral hypoglycemic agents held during hospitalization Blood sugar levels stable (4) UTI (urinary tract infection): UTI-likely catheter induced UTI Initially received Ceftriaxone Urine cultures: staph aureus and Enterococcus faecalis Continue Augmentin to complete 7-10 course (5) Diabetes mellitus, type II: Hold PO meds Continue ISS and Lantus at reduced dose 2/2 hypoglycemia (6) PMR (polymyalgia rheumatica): (7) Hypothyroidism: Continue Levothyroxine (8) Compression fracture of lumbar vertebra: Continue Brace PT/OT Pain control (9) HTN (hypertension): Stable Continue current medications DVT Px: SQ Lovenox Disposition: Plan to discharge to SNF Subjective Patient is seen and examined at bedside Back and Hip pain improving Denies chest pain, dyspnea, dizziness, nausea, abd pain No other complaints She is planned to be discharged to Rehab Facility today Physical Exam 2 Vital Signs (Past 24 Hours): Last Vital Signs Temp 36.6 C 10/31/18 07:19 Pulse 65 10/31/18 07:19 Resp 18 10/31/18 07:19 BP 153/82 H 10/31/18 07:19 Pulse Ox 99 10/31/18 07:19 Physical Exam: Physical Exam: Vitals signs as noted above General Appearance:Moderately built and nourished, no apparent distress Head: normocephalic, Atraumatic Eyes: normal inspection, EOMI Neck: supple, Trachea midline Respiratory/Chest: Decreased breath sounds, CTA Cardiovascular: S1, S2, No murmur Abdomen/GI:Soft, Non tender, Bowel sounds present Back:Brace in place Extremities/Musculoskelatal:normal inspection, no edema Neurologic/Psych:AAOX3, grossly no focal neurological deficits Skin: normal color, warm _ (1) UTI (urinary tract infection) Encounter type: Hematuria presence: with hematuria Indwelling urinary catheter type: Urinary tract infection type: site unspecified Qualified Code( s): N39.0 - Urinary tract infection, site not specified; R31.9 - Hematuria, unspecified (2) Compression fracture of lumbar vertebra Encounter type: initial encounter Fracture healing: Fracture type: closed Lumbar vertebra fracture level: L4 Qualified Code(s): S32.040A - Wedge compression fracture of fourth lumbar vertebra, initial encounter for closed fracture
--- NOTE | 2018-10-31 12:58 | Discharge Summary ---
Date of Service October 31, 2018 Admission HPI Per Admitting Provider She is an 78-year-old white Female with significant past medical history includingType 2 diabetes on insulin, Ambulatory dysfunction with recent fall and lumbar compression fracture, Chronic kidney disease stage III, polymyalgia rheumatica, hypertension, hyperlipidemia, GERDAnd hypothyroidism was admitted from [facility] with acute confusion, dysarthria with questionable right facial droop and noted to have a blood sugar of 49 with possible UTI and on presentation to the emergency room. The patient was seen and examined in presence of 3 daughters. She denies any neurologic symptoms during my examination and her dysarthria is almost gone. She was evaluated by telemetry neurologist and did not have any evidence of stroke. Her CAT scan of the head remain unremarkable and she will have an MRI to complete the test. She denies to have any fever and/or chills, any chest pain and/or palpitation more shortness of breath, any abdominal pain nausea and/or vomiting, she did have some frequency of urination but no problem with bowel habit and she denies to have any headache any blurred vision any numbness or tingling involving any of the extremities. She was recently discharged from the hospital following fall and compression fracture of lumbar vertebrae. She was in [facility] for continued rehabilitation Admission Exam Per Admitting Provider Physical Exam: Lying in bed comfortably Constitutional: WD/WN, vitals as above no acute distress Minimal dysarthria likely secondary to dry mouth Eyes: PERRL, conjunctivae normal, anicteric sclerae ENMT: external ear and nose normal, oropharynx normal Respiratory: normal respiratory effort; no respiratory distress Auscultation: + diminished lung sounds (Without any wheezing and/or crackles) Cardiovascular: Rate/Rhythm: regular rate and regular rhythm Heart Sounds: normal S1 and normal S2 Gastrointestinal (Abdomen): Inspection/Auscultation: abdomen normal to inspection and normal bowel sounds Percussion/Palpation: abdomen soft Neurologic: normal touch/pain/proprioception, moves all extremities and awake; + abnormal sensation to monofilament and no focal motor deficits No facial asymmetry and/or droop.,Alert and awake and oriented x3 Principal Diagnosis Discharge Information Discharge Diagnosis Acute CVA Hypoglycemia UTI Back pain secondary to Lumbar Vertebral compression fracture Discharge Goals Decrease discomfort,Improve disease control, Improve function Discharge Activity Limitations Per instructions/follow-up Discharge Data Allergies Allergy/AdvReac Type Severity Reaction Status Date / Time meperidine Allergy Hives Unverified 10/20/18 11:10 Consultations 10/27/18 14:34 ED Decision to Admit Stat 10/27/18 19:09 Consult Neurology Routine 10/28/18 10:45 Consult Case Management - Discharge Planning Routine Procedures Performed CXR: Mild cardiomegaly. Mild interstitial thickening which is age indeterminate although probably chronic. No definite acute findings. MRI Brain: Acute punctate lacunar infarcts seen within the ruddy and left caudate head. Carotid Doppler: No hemodynamically significant stenosis seen within the carotid arteries. Ordered Studies 10/27/18 13:04 CT head/brain wo con Stat 10/27/18 16:27 MR brain wo con Stat 10/28/18 15:14 US carotid doppler BI Routine Hospital Course (1) Stroke: Patient is admitted with stroke like symptoms which resolved MRI Brain:Acute punctate lacunar infarcts seen within the ruddy and left caudate head. Carotid Doppler:No hemodynamically significant stenosis seen within the carotid arteries. ECHO: No ASD No obvious residual weakness from stroke Speech back to baseline Appreciate neurologist input Likely to need outpatient cardiac monitoring as advised by neurologist Started on Aspirin 81 mg daily Continue Lipitor (2) Dysarthria: Secondary to Acute CVA Dysarthria resolved Management as above (3) Hypoglycemia: Patient is on Insulin therapy and oral hypoglycemic agent at home Presented with Hypoglycemia Insulin dose decreased Oral hypoglycemic agents held during hospitalization Blood sugar levels stable (4) UTI (urinary tract infection): UTI-likely catheter induced UTI Initially received Ceftriaxone Urine cultures: staph aureus and Enterococcus faecalis Continue Augmentin to complete 7-10 course (5) Diabetes mellitus, type II: Hold PO meds Continue ISS and Lantus at reduced dose 2/2 hypoglycemia (6) PMR (polymyalgia rheumatica): (7) Hypothyroidism: Continue Levothyroxine (8) Compression fracture of lumbar vertebra: Continue Brace PT/OT Pain control (9) HTN (hypertension): Stable Continue current medications DVT Px: SQ Lovenox Disposition: Plan to discharge to SNF Total Time Total Time Spent Total Time Spent (In Minutes): 41 minutes Total Time Includes: Examination of the Patient, Discharge Planning, Medication Reconciliation, Communication With Other Providers and Other Discharge Plan Discharge Items Patient Disposition: Transfer [facility] Reason For Visit: HYPOGLYCEMIA WITH DYSARTHRIA, UTI Discharge Diagnosis: Acute CVA Hypoglycemia UTI Back pain secondary to Lumbar Vertebral compression fracture Discharge Goals: Decrease discomfort, Improve disease control and Improve function Activity: Per 'Additional Instructions' section Exercise/Sports: Gradually increase as tolerated Non-emergency contact: Primary Care Provider, Surgeon and Neurologist Call non-emergency contact if: you have any medication questions, your symptoms worsen, your pain is not controlled, your pain is worsening, your pain is unusual for you, your pain is concerning for you and you have a fever Diet: Carb Consistent or DM2 Diet Texture: Mechanical soft (ground) Addtl Provider Instructions: Follow up with your PCP in 1 week after being discharged from Rehab Facility Follow up with your Neurologist in 6-8 weeks Follow up with your Orthopedic Surgeon in 4 weeks Complete the antibiotic course as prescribed for UTI Recommend cardiac event monitor as outpatient for further evaluation of possible Paroxysmal atrial fibrillation Seek immediate medical attention if your symptoms reoccur or worsen Risk Factors for Stroke: You can reduce your chances of stroke by working with your medical provider to adopt a healthy lifestyle. Some specific ways to lower your chance of stroke are: * If you are a smoker, now is the time to stop smoking cigarettes * If you are diabetic, improve the control of your blood sugars * Avoid excessive amounts of alcohol * Control high blood pressure * Lose weight if you are overweight * Be sure to lead an active lifestyle * Eat a healthy diet low in salt, cholesterol and fat You should know about other risk factors for stroke that you are unable to control. These include: * Age 55 years or older * Male gender * Certain racial groups: , or / * Family History of Stroke, Mini stroke or Heart Attack * Sickle Cell Disease Follow Up: It is important for you to keep your follow up appointments with your medical provider. Who to Call and When: Medical Emergencies: Call 911 immediately if you experience any of the following warning signs and symptoms of Stroke: * Sudden numbness or weakness of the face, arm or leg, especially on one side of the body * Sudden confusion, trouble speaking or understanding * Sudden trouble seeing in one or both eyes * Sudden trouble walking, dizziness, loss of balance or coordination * Sudden severe headache with no cause Do not delay calling 911 if you experience any warning signs or symptoms of a stroke. Delay in seeking medical attention may affect what treatments can be given to you. . Prescriptions: New aspirin [Ecotrin Low Strength] 81 mg Tablet,Delayed Release (Dr/Ec) 81 mg PO QAM 30 Days Qty: 30 RF: 2 amoxicillin-pot clavulanate 500-125 mg Tablet 1 tab PO BIDM 7 Days Qty: 14 RF: 0 oxycodone 5 mg Tablet 5 mg PO TID PRN (Reason: Pain) 3 Days Qty: 10 RF: 0 Continue atorvastatin 40 mg Tablet 40 mg PO HS RF: 0 sennosides [senna] 8.6 mg Tablet 8.6 mg PO QAM PRN (Reason: Constipation) RF: 0 metoprolol succinate [Toprol XL] 100 mg Tablet Extended Release 24 Hr 100 mg PO HS RF: 0 prednisone 5 mg Tablet 5 mg PO HS RF: 0 amlodipine 2.5 mg Tablet 2.5 mg PO DAILY RF: 0 allopurinol 100 mg Tablet 100 mg PO Q12 RF: 0 acetaminophen [Acetaminophen Extra Strength] 500 mg Tablet 500 mg PO Q4H PRN (Reason: Pain) RF: 0 levothyroxine 100 mcg Tablet 100 mcg PO QAM RF: 0 bisacodyl 10 mg Suppository 10 mg GA DAILY PRN (Reason: Constipation) RF: 0 docusate sodium [Colace] 100 mg Capsule 100 mg PO BID RF: 0 zolpidem [Ambien] 5 mg Tablet 5 mg PO HS PRN (Reason: Insomnia) RF: 0 brimonidine [Alphagan P] 0.15 % Drops 1 drp OPB DAILY RF: 0 enoxaparin [Lovenox] 40 mg/0.4 mL Syringe 40 mg SUBCUT DAILY@19 RF: 0 escitalopram oxalate [Lexapro] 10 mg Tablet 10 mg PO HS RF: 0 insulin aspart U-100 [Novolog Flexpen U-100 Insulin] 100 unit/mL Insulin Pen SUBCUT ACHS RF: 0 sitagliptin [Januvia] 50 mg Tablet 50 mg PO HS RF: 0 magnesium hydroxide [Milk Of Magnesia Concentrated] 2,400 mg/10 mL Suspension 30 ml PO DAILY PRN (Reason: Constipation) RF: 0 Discontinued glimepiride 1 mg Tablet 1 mg PO BIDM RF: 0 Stand-Alone Forms: [facility] Discharge Orders: Discharge Order (Routine); Ordered 10/31/18 Ordered By: Jeffy Nix Skilled Items Patient informed of condition?: Yes DNR: No Discharge Level of Care: Skilled Communicable Disease: No Discharge Prognosis: Improving Admission Data Admit Date/Time: 10/27/18 17:51 Attending Provider: Jeffy Nix Admit Provider: Brian Alvarado Primary Care Provider: James Hargrove V Other Providers: Marky Vuong ; Mason Hassan ; Brian Alvarado Service: Medical Other Pending Studies at Discharge: No
== END 2018-10-31 16:06 | DRG 65 ==
LOC: ED 12:35 → 2S 17:32 → SUATTDRO 17:51 → 4W 10-29 16:38